=== PATIENT | female | born 1950 | race Caucasian/White ===

== ENCOUNTER 2024-12-23 17:25 | Inpatient (IN) ==
--- NOTE | 2024-12-23 17:33 | Emergency Department Note ---
Impression & Plan High degree atrioventricular block, Unwitnessed fall, Complicated laceration of lip, Acute alcohol intoxication delirium with moderate or severe use disorder, Acute hyponatremia, Anemia ED Provider Note NAME: FEDE MOREIRA AGE: 74 SEX: F : 1950 ARRIVES VIA: Ambulance INFORMANT: Patient, EMS ED PROVIDER(S): Cale Cerda DO CHIEF COMPLAINT: fall, found down HPI: This is a 74-year-old female with the PMHx of alcohol use disorder, tobacco use disorder, hypertension, dyslipidemia and osteoporosis presenting to [facility] for further evaluation of unwitnessed fall. Patient is accompanied by EMS who provide additional history. EMS reports that the patient was found outside her home. She lives by herself. They report positive ethanol. The patient was intoxicated and confused. Unknown amount of downtime. Noted to have lip laceration but otherwise no evidence of trauma. The patient was placed in a c- collar and transported. The patient currently has no complaints. She is delirious. She is unable to provide reliable history. She denies neck or back pain. No pain in her extremities. Patient does not know how she fell she reports to drinking 4 beverages this evening. They deny fever or chills. No cough or congestion. Denies chest pain or palpitations. No shortness of breath. They deny abdominal pain, nausea and vomiting. No urinary complaints. No recent changes in bowel movements. Patient denies recent changes in medications or OTC supplements. Patient offers no other complaints, today. ADDITIONAL HISTORY OBTAINED: Per HPI Chronic Medical/Social Conditions Affecting Care: Per HPI PAST MEDICAL HISTORY: See Below PAST SURGICAL HISTORY: See Below FAMILY HISTORY: See Below SOCIAL HISTORY: See Below HOME MEDICATIONS: See Below ALLERGIES: See Below VITALS: See Below Primary Survey Airway: Intact Breathing: Normal, breath sounds equal bilaterally Circulation: Skin warm, distal pulses 2+, capillary refill less than 2 seconds Disability Pupils: Equal and reactive to light, 4mm, brisk GCS: 15, E = 4, V=4, M= 6 Motor Function: Moves all extremities. Sensory: No deficits Secondary Survey GEN: Well developed and well-nourished HENT: L upper lip laceration 1.5 cm with extension across the vermilion border. There is complete laceration through the lip and into the submucosal tissue. No active bleeding. Head: no external signs of trauma. Mouth/Throat: Midface Normal. no malocclusion. Eyes: EOMI. Pupils are 4 mm, round and reactive bilaterally. Ears: TMs are intact bilaterally. no external hematomas. no hemotympanum. Nose: No nasal septal hematoma. no gross deformity. Neck: C-collar in place. no midline C-spine tenderness. No step-offs. Cardiovascular: Bradycardic Pulses present in all 4 extremities. Pulmonary/Chest: Normal BS equal bilaterally. no tenderness or ecchymosis. Abdomen: DO tenderness or ecchymosis. Musculoskeletal: Pelvis: no instability. Back: no midline tenderness. No step-offs or deformities. Extremities: no gross deformities. no TTP. Skin: lip laceration as above. There are scattered abrasions. Organic material scattered over the head, scalp and extremities. Neuro: No focal neurological deficits. GCS as above. She is mildly confused and inattentive Psych: Normal mood and affect. MEDICAL DECISION MAKING: Vitals: The patient is bradycardic and hypertensive. No fever. Otherwise HDS. EKG independently interpreted by me reveals concerns for high degree AV block with multiple P waves without QRS. Could be junctional rhythm. Rate is [address] segment changes suggest STEMI. Labs: Laboratory analysis as above Differential diagnoses include but not limited to multi-system trauma, ICH, skull fracture, spine / spinal cord injury, fracture, dislocation, traumatic abdominal injuries, solid / visceral organ injuries, MSK sprain / strain, contusion, whiplash, concussion In summary, this is a 74 who presented as a trauma alert. There was prehospital notification of trauma. They were brought to the emergency/resuscitation room by EMS. Patient was brought into the emergency/resuscitation room by EMS. Full ATLS protocol was initiated under direction of the ED team. The history was concerning for multi-system trauma. Airway intact and self maintained, breath sounds bilateral and equal along with normal effort, circulation intact with pp in 4 extremities, GCS 14 with normal speech and sensorium and THORNE. Patient was removed from the EMS stretcher with in-line stabilization technique and patient is back examined. Full physical examination as above. History and secondary survey as above. Labs drawn and significant for mild anemia and hyponatremia. Ethanol elevated and correlates to exam and presentation. CXR independently interpreted by me reveals no evidence of focal consolidation to suggest pna. No large pneumothorax or pleural effusion. eFAST deferred for WBCT as the patient does not demonstrate evidence of shock. Collar maintained. Pt was given tetanus. Initial/stabilizing treatments include close observation and TDAP. Imaging performed and reviewed as above. Patient was taken to the CT suite for WBCT. On reevaluation at 1820, patient is still confused and intoxicated. Unable to provide consent for lip laceration repair. She states she does not have family or friends for a ride. Will touch base with care management for assistance. SHe does appear to have second degree AVB on rhythm strips. Hypertensive. Intoxicated and difficult to obtain story. Some consistent P waves but felt third degree block is less likely. Will send rhythm strips to discuss with cardiology. The patient's cervical collar was not removed today. The patient's imaging was reviewed and the CT C-Spine was negative for acute injury. Unfortunately, the patient is still intoxicated and C collar unable to be removed. The patient's complex injuries include unwitnessed fall with subsequent lip laceration and high degree AV block. Patient also has metabolic derangements including hyponatremia. Patient found to have anemia. She is altered in the setting of acute alcohol intoxication. The patient's lip laceration was repaired as the benefits outweighed the risk. She was consented to the best of her ability given her acute intoxication. Laceration repair was needed immediately to ensure wound healing. Based on the patient's age, code existing illnesses, exam and lab findings, the decision to treat as an inpatient was made. Given the patient's bradycardia and concerns for high degree AV block, I consulted cardiology. Spoke with cardiology at 2004. They are concerned for high-grade AV block in the setting of sinus tachycardia. They suspect this is likely related to metabolic derangements. They recommend to have the pads on the patient and atropine at bedside. If she were to develop worsening symptoms, become symptomatic or have long prolonged pauses, they would consider cardiac catheterization activation. For now, they would like to continue symptomatic management and correcting her metabolic derangements including alcohol intoxication. Given the patient's high degree AV block and fall with significant alcohol intoxication, I did recommend to admit this patient the patient was discussed with the [facility] hospitalist group, Dr. Saldana, at 2030 and she accepted for admission to her services. The patient's lip laceration was repaired at the bedside by midlevel provider. I was available for the procedure. I was present for critical steps of the procedure including approximation of the vermilion border. Consults/Care Managements Discussions: Per MDM ER treatment provided: See above Procedures:none Critical Care: None The chart was completed utilizing [employer] Speech voice recognition software. Grammatical errors, random word insertions, pronoun errors, and incomplete sentences are an occasional consequence of this system due to software limitations, ambient noise, and hardware issues. Any formal questions or concerns about the content, text, or information contained within the body of this dictation should be directly addressed to the physician for clarification. Past Med/Surg History Problem List Anemia (Acute) Acute hyponatremia (Acute) Acute alcohol intoxication delirium with moderate or severe use disorder (Acute) Complicated laceration of lip (Acute) Unwitnessed fall (Acute) High degree atrioventricular block (Acute) Junctional bradycardia Tobacco abuse Lyme carditis Complete heart block Lyme disease Fall Bradycardia Osteoporosis Dyslipidemia B12 deficiency Cigarette smoker Hearing difficulty HTN (hypertension) Medical History Migraines Anxiety and depression Cyst of ovary, right Teeth missing due to periodontal disease HTN (hypertension) No pertinent family history Surgical History History of removal of ovarian cyst Hx of appendectomy No pertinent past surgical history Family History Mother Anxiety Depression Diabetes Hypertension Father Prostate cancer Social History Smoking Status: Current every day smoker Tobacco Type: Cigarettes Age Started Using Tobacco: 20; packs per day: 0.75; Cigarettes Per Day: 3/4 pack; Second Hand Exposure: No; Do You Dip or Chew Tobacco: No; Tobacco Cessation Education Requested by Patient: No Hx Alcohol Use: Yes Alcohol type: beer Hx Substance Use: No Preferred Language: Citizen Of [place] Communication Ability: Effective Director Traffic And Planning Required: No Beliefs That Will Affect Care: None marital status: Single Current Living Situation: Alone Current Living Situation Comment: apartment current occupational status: retired Other Information That Helps Us Care for You: No Feels Safe at Home: Yes Childhood Exposure to Second-Hand Smoke: Yes Diet: regular caffeine: Yes Dental Care, Regularly: No Physical Activity Frequency: Daily Seatbelt Use: always Sunscreen Use: No Assistive Devices: Cane and Glasses Allergies Allergies Allergy/AdvReac Type Severity Reaction Status Date / Time No Known Allergies Allergy Verified 12/23/24 18:34 Home Meds Home Medications Medication Instructions Recorded Confirmed acetaminophen 325 mg tablet 650 mg PO DIRECTED PRN Pain 06/13/21 12/23/24 (Tylenol) mecobalamin (vitamin B12) 1,000 1,000 mcg sublingual DAILY 12/29/23 12/23/24 mcg disintegrating tablet,sublingual multivitamin 1 tab PO DAILY 12/29/23 12/23/24 Previous Rx's Medication Instructions Recorded lisinopril 40 mg tablet 40 mg PO DAILY 90 days #90 tabs 12/29/23 rosuvastatin 40 mg tablet (Crestor) 40 mg PO DAILY #90 tabs 05/19/24 alendronate 70 mg tablet (Fosamax) 70 mg PO .q7days 3 months #12 tabs 08/05/24 Results & Data (ED) Vital Signs Vital Signs - 24 hr 12/23/24 17:11 12/23/24 17:11 12/23/24 17:11 Temperature 36.4 C L 36.4 C L 36.4 C L Temperature Source Oral Oral Pulse Rate 49 L 49 L Pulse Rate [Right Finger] 49 L Respiratory Rate 21 21 21 Respiratory Effort / Characteristics Non-Labored Spontaneous Non-Labored Spontaneous Respiratory Depth Normal Normal Respiratory Pattern Blood Pressure 177/83 H 177/83 H Blood Pressure [Right Arm] 177/83 H Blood Pressure Mean 114 Blood Pressure Mean [Right Arm] 114 Pulse Oximetry 99 99 99 Oxygen Delivery Method Room Air Room Air Room Air Oxygen Flow Rate 0 Sepsis Recent Fever Within 48 Hours No Sepsis New/Unexplained Change in Mental Status No Sepsis Action Taken by Nursing No Action Required 12/23/24 17:38 12/23/24 18:10 12/23/24 18:11 Temperature 36.4 C L Temperature Source Oral Pulse Rate 50 L Pulse Rate [Right Finger] 49 L 48 L Respiratory Rate 19 18 Respiratory Effort / Characteristics Non-Labored Spontaneous Non-Labored Spontaneous Respiratory Depth Normal Normal Respiratory Pattern Blood Pressure Blood Pressure [Right Arm] 174/72 H 174/72 H Blood Pressure Mean Blood Pressure Mean [Right Arm] 106 106 Pulse Oximetry 98 97 Oxygen Delivery Method Room Air Room Air Oxygen Flow Rate Sepsis Recent Fever Within 48 Hours Sepsis New/Unexplained Change in Mental Status Sepsis Action Taken by Nursing 12/23/24 19:00 12/23/24 20:00 Temperature 37.0 C 36.8 C Temperature Source Oral Oral Pulse Rate Pulse Rate [Right Finger] 48 L 47 L Respiratory Rate 20 18 Respiratory Effort / Characteristics Non-Labored Spontaneous Non-Labored Spontaneous Respiratory Depth Normal Normal Respiratory Pattern Regular Regular Blood Pressure Blood Pressure [Right Arm] 187/69 H 179/75 H Blood Pressure Mean Blood Pressure Mean [Right Arm] 108 109 Pulse Oximetry 95 94 Oxygen Delivery Method Room Air Room Air Oxygen Flow Rate Sepsis Recent Fever Within 48 Hours Sepsis New/Unexplained Change in Mental Status Sepsis Action Taken by Nursing Laboratory Data 12/24/24 06:59 12/24/24 06:59 Lab Results 12/23/24 12/23/24 Range/Units 17:43 19:58 POC Hgb 12.2 (12.0-16.0) g/dl POC Hct 36 L (37-47) % POC Sodium 131 L (135-144) mmol/L POC Potassium 3.9 (3.3-5.0) mmol/L POC Chloride 99 L (101-112) mmol/L POC Total CO2 22 L (24-31) mmol/L POC Anion Gap 15.0 L (16-25) mmol/L POC BUN 11 (7-18) mg/dl POC Creatinine 0.9 (0.6-1.3) mg/dl POC Glucose (other) 94 (70-99) mg/dl POC Ioniz Calcium Katie 1.11 L (1.12-1.32) mmol/l Urine Color Yellow Urine Appearance Clear (Clear) Urine pH 5.5 (4.5-7.5) Ur Specific Banks 1.015 (1.000-1.030) Urine Protein Negative (Negative) Urine Glucose (UA) Negative (Negative) Urine Ketones Negative (Negative) Urine Blood Negative (Negative) Urine Nitrite Negative (Negative) Urine Bilirubin Negative (Negative) Urine Urobilinogen Negative (Negative) Ur Leukocyte Esterase Negative (Negative) Urine Comment Administered Medications Acetaminophen (Acetaminophen 500 Mg Tab) 1,000 mg PO TID PRN PRN Reason: pain or fever Stop: 01/22/25 23:03 Last Admin: 12/24/24 20:27 Dose: 1,000 mg Documented By: Admin: 12/23/24 23:44 Dose: 1,000 mg Documented By: CR Thiamine HCl 100 mg/ Syringe 10 mls @ 2 mls/min IV QAM FANTASMA Stop: 01/23/25 08:59 Last Admin: 12/24/24 08:44 Dose: 2 mls/min Documented By: OS Folic Acid 1 mg/ Syringe 10 mls @ 5 mls/min IV QAM FANTASMA Stop: 01/23/25 08:59 Last Admin: 12/24/24 08:46 Dose: 5 mls/min Documented By: OS Ceftriaxone Sodium (Rocephin) 2,000 mg in 50 mls @ 100 mls/hr IV Q24H FANTASMA Stop: 01/03/25 10:59 Last Infusion: 12/24/24 11:25 Dose: Infused Documented By: Admin: 12/24/24 10:51 Dose: 100 mls/hr Documented By: FRIDA Lisinopril (Lisinopril 40 Mg Tab) 40 mg PO DAILY FANTASMA Stop: 01/23/25 08:59 Last Admin: 12/24/24 08:44 Dose: 40 mg Documented By: OS Rosuvastatin Calcium (Rosuvastatin Calcium 20 Mg Tab) 40 mg PO DAILY FANTASMA Stop: 01/23/25 08:59 Last Admin: 12/24/24 08:44 Dose: 40 mg Documented By: OS Discontinued Medications Atropine Sulfate (Atropine Sulfate 0.1 Mg/Ml 10ml Syr) 0.5 mg IV PRN STA Stop: 12/23/24 20:21 Last Admin: 12/23/24 23:00 Dose: Not Given Documented By: KMB Diphtheria/Pertussis/Tetanus Vacc (Diphther/Tetan/Pertus Vaccine (Tdap, Adol/Adult) 0.5ml) 0.5 ml IM .ONCE ONE Stop: 12/23/24 17:34 Last Admin: 12/23/24 17:40 Dose: 0.5 ml Documented By: CTK Lactated Ringer's (Lr) 1,000 mls @ 125 mls/hr IV .Q8H FANTASMA Stop: 12/24/24 07:03 Last Infusion: 12/24/24 08:49 Dose: Infused Documented By: Admin: 12/24/24 00:21 Dose: 125 mls/hr Documented By: CR Thiamine HCl 500 mg/ Sodium (Chloride) 55 mls @ 210 mls/hr IV NOW ONE Stop: 12/23/24 23:30 Last Infusion: 12/24/24 00:22 Dose: Infused Documented By: Admin: 12/24/24 00:06 Dose: 210 mls/hr Documented By: MARTHA Calcium Gluconate () 1,000 mg in 60 mls @ 240 mls/hr IV NOW STA Stop: 12/23/24 23:18 Last Infusion: 12/24/24 00:05 Dose: Infused Documented By: Admin: 12/23/24 23:50 Dose: 240 mls/hr Documented By: MARTHA Ioversol (Optiray 320 100ml) 90 ml IV ONCE ONE Stop: 12/23/24 17:56 Last Admin: 12/23/24 17:56 Dose: 90 ml Documented By: JANNETH Lidocaine HCl (Lidocaine 1% Local 20 Ml Vial) 10 ml INFIL NOW ONE Stop: 12/23/24 19:38 Last Admin: 12/23/24 19:43 Dose: 10 ml Documented By: BRIGITTE Imaging Data Radiologist's Impression: Abdomen/Pelvis CT 12/23/24 17:31 Clinical History: Trauma Technique: Axial computed tomography images were obtained of the abdomen and pelvis after the administration of intravenous contrast. No prior CT is available for comparison. Findings: The liver is overall of normal size, attenuation, and contour with no sign of cirrhosis or significant fatty infiltration. No liver mass lesion is seen. The portal vein is patent. The gallbladder appears unremarkable. No bile duct dilatation is noted. The spleen is of normal size. No focal splenic lesion is evident. The pancreas appears normal with no sign of acute or chronic pancreatitis and no mass lesion noted. The pancreatic duct is of normal caliber. The adrenal glands appear unremarkable. No definite renal or proximal ureteral calculi are seen on this contrast-enhanced study. There is no hydronephrosis or perinephric stranding. No renal mass lesion is identified. The abdominal aorta is of normal caliber. No abdominal adenopathy is seen. The stomach appears normal. There is no sign of small bowel obstruction. There is suspected mild wall thickening of the jejunum. There is also apparent long segment wall thickening of the mid and distal sigmoid colon. There is diverticulosis without definite acute diverticulitis. No free intraperitoneal fluid or air is identified. No distal ureteral or bladder calculi are seen. No bladder mass lesion is evident. The iliac arteries are of normal caliber. No pelvic adenopathy is noted. No fracture is identified. No focal osseous lesion is seen Impression: 1. No definite sign of abdominal organ injury after trauma 2. Apparent wall thickening of the jejunum and sigmoid colon that could be due to infection or inflammatory bowel disease 3. Diverticulosis without definite diverticulitis ACT 112: Positive. There are findings on this exam that require communication between the performing entity and the patient following Patient Test Result Information Act ([place] ACT 112) guidelines. Electronically signed by All Herr 12-23-2024 6:[address] 12/23/24 17:31 Clinical history: Fall Technique: Axial computed tomography images were obtained of the cervical spine without intravenous contrast. Sagittal and coronal reconstructions were obtained Comparison is made to the prior CT dated 06/13/2021 Findings: No fracture is identified. No listhesis is seen. No focal osseous lesion is evident. The atlantoaxial articulation appears unremarkable. At C2-3, no disc herniation is identified. There is no spinal stenosis. The neural foramen are patent At C3-4, there is a disc bulge without clear spinal cord deformity. There is right neural foramen narrowing that may affect the right C4 nerve root At C4-5, there is a disc bulge without spinal stenosis. There is mild right neural foramen narrowing At C5-6, there is a disc bulge without spinal stenosis. There is right neural foramen narrowing that may affect the right C6 nerve root At C6-7, there is a disc bulge without spinal stenosis. There is mild right neural foramen narrowing At C7-T1, there is a disc bulge without spinal stenosis. The neural foramen are patent The lung apices appear clear. The visualized soft tissues of the neck appear unremarkable. No foreign body is seen Impression: 1. No definite cervical spine fracture 2. Right C3-4 and C5-6 neural foramen narrowing, which may affect the exiting nerve roots. Less severe neural foramen narrowing is seen at other levels Electronically signed by All Herr 12-23-2024 6:[address] 12/23/24 17:31 Clinical history: Trauma Technique: Axial computed tomography images were obtained of the chest after the administration of intravenous contrast Comparison is made to the prior CT dated 02/08/2024 Findings: There is suspected mild pulmonary edema. The lungs otherwise appear clear without infiltrate or mass. There is no pleural effusion or pneumothorax. There is no sign of pulmonary fibrosis or other diffuse interstitial process. No endobronchial lesion is seen There is no mediastinal, hilar, or axillary adenopathy. The descending thoracic aorta is mildly aneurysmal, measuring 3.3 cm in diameter. No aortic dissection is seen There is no pericardial effusion. There is a severe stenosis of the proximal left subclavian artery. There is coronary atherosclerosis. There is mild dilatation of the esophagus. No definite rib fracture is seen. No focal osseous lesion is evident Impression: 1. Mild pulmonary edema 2. Mild thoracic aortic aneurysm 3. Severe stenosis of the proximal left subclavian artery 4. Mild esophageal dilatation that could be due to dysmotility or reflux Electronically signed by All Herr 12-23-2024 6:32 PM Chest X-Ray 12/23/24 17:31 Clinical History: Trauma Technique: 2 frontal views of the chest were obtained Findings: There are no confluent pulmonary infiltrates. The heart is mildly enlarged. No pleural effusion or pneumothorax is seen. There is no definite pulmonary nodule. No fracture is noted. No foreign body is seen Impression: Mild cardiomegaly Electronically signed by All Herr 12-23-2024 6:[address] 12/23/24 17:31 Clinical History: Trauma Technique: Axial computed tomography images were obtained of the brain without intravenous contrast. Findings: There is diffuse cerebral atrophy, within expected limits for the patient's age. Areas of decreased attenuation are seen within the periventricular white matter, likely representing chronic small vessel ischemic disease. There is no definite sign of acute or old infarction. No intracranial hemorrhage is evident. No definite mass lesion is seen on this noncontrast examination. There is no midline shift or other form of herniation. No hydrocephalus is seen. No fracture is identified. The orbits and the visualized paranasal sinuses appear unremarkable. There is opacification of the mastoid air cells bilaterally Impression: 1. No sign of intracranial hemorrhage 2. Cerebral atrophy and chronic small vessel ischemic disease 3. Bilateral mastoid air cell opacification, concerning for inflammatory mastoiditis Electronically signed by All Herr 12-23-2024 6:17 PM Pelvis X-Ray 12/23/24 17:31 Clinical History: Trauma One view of the pelvis is submitted for review. Findings: No fracture or dislocation is seen. No significant arthritic changes are noted. No other osseous abnormality is identified. There are no radiopaque foreign bodies. Impression: Unremarkable pelvic radiograph Electronically signed by All Herr 12-23-2024 6:[address] 12/23/24 17:33 Clinical history: Trauma Technique: Axial computed tomography images were obtained of the facial bones without intravenous contrast. Sagittal and coronal reconstructions were obtained Findings: No fracture is identified. No focal osseous lesion is noted. 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 The ostiomeatal units appear patent bilaterally. The orbits appear unremarkable. No foreign body is seen. The nasal septum is deviated. No definite nasal polyp is noted Impression: No definite facial bone fracture Electronically signed by All Herr 12-23-2024 6:29 PM Discharge Plan Visit Data Chief Complaint: Trauma ED Provider: Cale Cerda Discharge Problem: High degree atrioventricular block, Unwitnessed fall, Complicated laceration of lip, Acute alcohol intoxication delirium with moderate or severe use disorder, Acute hyponatremia, Anemia Patient Disposition: Admitted As Inpatient Condition: Serious Discharge Instructions Interventions: ED Discharge Assessment Last Done: 12/23/24 22:39
[2024-12-23] MEDS: DIPHTHER/TETAN/PERTUS Vaccine (Tdap, Adol/Adult) 0.5mL IM ONE (17:40)
[2024-12-23 17:54] LABS: Hematocrit (blood only) 35.3 % (37.0-47.0); Hemoglobin 11.9 g/dl (12.0-16.0); Immature Granulocytes # (auto) 0.03 K/uL (0.01-0.20); Immature Granulocytes % (auto) 0.4 %; Mean Corpuscular Hemoglobin 30.1 pg (25.0-34.0); Mean Corpuscular Volume 89.4 fL (80.0-100.0); Platelet Count 282 K/uL (130-400); RDW Standard Deviation 44.1 fL (36.4-46.3); Red Blood Count 3.95 M/uL (4.20-5.40); White Blood Count 8.27 K/ul (4.8-10.8)
[2024-12-23] MEDS: OPTIRAY 320 100ml IV ONE (17:56)
[2024-12-23 18:11] LABS: Alanine Aminotransferase 12.0 U/L (7-52); Albumin Globulin Ratio 1.5 (0.9-2); Alkaline Phosphatase 86.0 U/L (34-104); Anion Gap 11.0 (3-11); Bilirubin,Total 0.3 mg/dl (0.2-1.0); Blood Urea Nitrogen 12.0 mg/dl (6-23); Calcium 8.9 mg/dl (8.6-10.3); Carbon Dioxide 24.0 mmol/L (21-32); Chloride 97.0 mmol/L (98-107); Creatine Kinase 61.0 U/L (26-192); Creatinine Clr Calc Pharmacy 89.2 ml/min; Globulin 2.8 gm/dl (2.5-4.0); Glucose 95.0 mg/dl (70-99(Fasting)); Lipase 52.0 U/L (11-82); Potassium 3.9 mmol/L (3.5-5.1); Sodium 132.0 mmol/L (136-145); Total Protein 6.9 gm/dl (6.0-8.3)
--- NOTE | 2024-12-23 18:18 | CT Scan Report ---
Clinical History: Trauma Technique: Axial computed tomography images were obtained of the brain without intravenous contrast. Findings: There is diffuse cerebral atrophy, within expected limits for the patient's age. Areas of decreased attenuation are seen within the periventricular white matter, likely representing chronic small vessel ischemic disease. There is no definite sign of acute or old infarction. No intracranial hemorrhage is evident. No definite mass lesion is seen on this noncontrast examination. There is no midline shift or other form of herniation. No hydrocephalus is seen. No fracture is identified. The orbits and the visualized paranasal sinuses appear unremarkable. There is opacification of the mastoid air cells bilaterally Impression: 1. No sign of intracranial hemorrhage 2. Cerebral atrophy and chronic small vessel ischemic disease 3. Bilateral mastoid air cell opacification, concerning for inflammatory mastoiditis Electronically signed by All Herr 12-23-2024 6:17 PM
--- NOTE | 2024-12-23 18:30 | CT Scan Report ---
Clinical history: Trauma Technique: Axial computed tomography images were obtained of the facial bones without intravenous contrast. Sagittal and coronal reconstructions were obtained Findings: No fracture is identified. No focal osseous lesion is noted. 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 The ostiomeatal units appear patent bilaterally. The orbits appear unremarkable. No foreign body is seen. The nasal septum is deviated. No definite nasal polyp is noted Impression: No definite facial bone fracture Electronically signed by All Herr 12-23-2024 6:29 PM
[2024-12-23 18:32] LABS: INR 0.9 (0.9-1.1); Partial Thromboplastin Time 28 Seconds (21-31); Prothrombin Time 9.9 Seconds (9.0-12.0)
--- NOTE | 2024-12-23 18:32 | CT Scan Report ---
Clinical history: Trauma Technique: Axial computed tomography images were obtained of the chest after the administration of intravenous contrast Comparison is made to the prior CT dated 02/08/2024 Findings: There is suspected mild pulmonary edema. The lungs otherwise appear clear without infiltrate or mass. There is no pleural effusion or pneumothorax. There is no sign of pulmonary fibrosis or other diffuse interstitial process. No endobronchial lesion is seen There is no mediastinal, hilar, or axillary adenopathy. The descending thoracic aorta is mildly aneurysmal, measuring 3.3 cm in diameter. No aortic dissection is seen There is no pericardial effusion. There is a severe stenosis of the proximal left subclavian artery. There is coronary atherosclerosis. There is mild dilatation of the esophagus. No definite rib fracture is seen. No focal osseous lesion is evident Impression: 1. Mild pulmonary edema 2. Mild thoracic aortic aneurysm 3. Severe stenosis of the proximal left subclavian artery 4. Mild esophageal dilatation that could be due to dysmotility or reflux Electronically signed by All Herr 12-23-2024 6:32 PM
--- NOTE | 2024-12-23 18:36 | CT Scan Report ---
Clinical History: Trauma Technique: Axial computed tomography images were obtained of the abdomen and pelvis after the administration of intravenous contrast. No prior CT is available for comparison. Findings: The liver is overall of normal size, attenuation, and contour with no sign of cirrhosis or significant fatty infiltration. No liver mass lesion is seen. The portal vein is patent. The gallbladder appears unremarkable. No bile duct dilatation is noted. The spleen is of normal size. No focal splenic lesion is evident. The pancreas appears normal with no sign of acute or chronic pancreatitis and no mass lesion noted. The pancreatic duct is of normal caliber. The adrenal glands appear unremarkable. No definite renal or proximal ureteral calculi are seen on this contrast-enhanced study. There is no hydronephrosis or perinephric stranding. No renal mass lesion is identified. The abdominal aorta is of normal caliber. No abdominal adenopathy is seen. The stomach appears normal. There is no sign of small bowel obstruction. There is suspected mild wall thickening of the jejunum. There is also apparent long segment wall thickening of the mid and distal sigmoid colon. There is diverticulosis without definite acute diverticulitis. No free intraperitoneal fluid or air is identified. No distal ureteral or bladder calculi are seen. No bladder mass lesion is evident. The iliac arteries are of normal caliber. No pelvic adenopathy is noted. No fracture is identified. No focal osseous lesion is seen Impression: 1. No definite sign of abdominal organ injury after trauma 2. Apparent wall thickening of the jejunum and sigmoid colon that could be due to infection or inflammatory bowel disease 3. Diverticulosis without definite diverticulitis ACT 112: Positive. There are findings on this exam that require communication between the performing entity and the patient following Patient Test Result Information Act ([place] ACT 112) guidelines. Electronically signed by All Herr 12-23-2024 6:36 PM
--- NOTE | 2024-12-23 18:39 | CT Scan Report ---
Clinical history: Fall Technique: Axial computed tomography images were obtained of the cervical spine without intravenous contrast. Sagittal and coronal reconstructions were obtained Comparison is made to the prior CT dated 06/13/2021 Findings: No fracture is identified. No listhesis is seen. No focal osseous lesion is evident. The atlantoaxial articulation appears unremarkable. At C2-3, no disc herniation is identified. There is no spinal stenosis. The neural foramen are patent At C3-4, there is a disc bulge without clear spinal cord deformity. There is right neural foramen narrowing that may affect the right C4 nerve root At C4-5, there is a disc bulge without spinal stenosis. There is mild right neural foramen narrowing At C5-6, there is a disc bulge without spinal stenosis. There is right neural foramen narrowing that may affect the right C6 nerve root At C6-7, there is a disc bulge without spinal stenosis. There is mild right neural foramen narrowing At C7-T1, there is a disc bulge without spinal stenosis. The neural foramen are patent The lung apices appear clear. The visualized soft tissues of the neck appear unremarkable. No foreign body is seen Impression: 1. No definite cervical spine fracture 2. Right C3-4 and C5-6 neural foramen narrowing, which may affect the exiting nerve roots. Less severe neural foramen narrowing is seen at other levels Electronically signed by All Herr 12-23-2024 6:39 PM
--- NOTE | 2024-12-23 18:40 | XRay Report ---
Clinical History: Trauma Technique: 2 frontal views of the chest were obtained Findings: There are no confluent pulmonary infiltrates. The heart is mildly enlarged. No pleural effusion or pneumothorax is seen. There is no definite pulmonary nodule. No fracture is noted. No foreign body is seen Impression: Mild cardiomegaly Electronically signed by All Herr 12-23-2024 6:40 PM
--- NOTE | 2024-12-23 18:41 | XRay Report ---
Clinical History: Trauma One view of the pelvis is submitted for review. Findings: No fracture or dislocation is seen. No significant arthritic changes are noted. No other osseous abnormality is identified. There are no radiopaque foreign bodies. Impression: Unremarkable pelvic radiograph Electronically signed by All Herr 12-23-2024 6:40 PM
[2024-12-23] MEDS: LIDOCAINE 1% LOCAL 20 ML VIAL INFIL ONE (19:43)
[2024-12-23 20:10] LABS: Appearance Urine Clear (Clear); Glucose Urine UA Negative (Negative)
--- NOTE | 2024-12-23 20:23 | Emergency Department Note ---
ED Visit Note I was asked to repair this patient's lip laceration by Dr. Cerda. Please refer to his dictation for further details. In short, the patient had an unwitnessed fall when she tripped and fell while walking into her apartment striking her face on the concrete. The patient sustained a laceration to the left side of her upper lip. The patient has a 4 cm long laceration to the left side of the upper lip. The laceration crosses the vermilion border. The edges gape widely apart with and without traction, but it is not a through and through laceration. There is no active bleeding and no foreign bodies present. No other lacerations to the inside of the mouth or the remainder of the lips. There was concern about the patient's compliance with follow-up, therefore, dissolvable sutures were used to repair the lip laceration. Risks and benefits of the procedure were discussed. Verbal consent was obtained to perform the procedure and the procedure was performed by myself. Using sterile technique the wound was cleaned with Betadine. The area was sterilely draped. 2 ml of 1% lidocaine was used to anesthetize the wound. Once the patient was anesthetized, the wound was copiously irrigated under pressure with sterile saline. The wound was explored and was as described above. The more external portion of the laceration was repaired using 5 simple interrupted 6-0 Vicryl sutures with the wound edges being well approximated and careful attention to reapproximate the vermilion border. The internal portion of the laceration that was more internal and over the mucous membrane was repaired using 4 simple interrupted 5-0 plain gut sutures with the wound edges being well-approximated. The patient tolerated the procedure well. Hemostasis was achieved. The area was cleaned with sterile saline. .
--- NOTE | 2024-12-23 20:59 | History & Physical Report ---
Date of Service December 23, 2024 Assessment & Plan (1) Fall: (2) Bradycardia: (3) HTN (hypertension): (4) Dyslipidemia: Plan 74yo female with HTN, HLP presenting with unwitnessed fall, unknown down time. Patient with bradycardia noted on monitor, possible high degree block? Imaging as above with no fractures or trauma. Cervical spine with no fracture. Patient denies neck pain or tenderness. #Fall - unwitnessed fall. Patient has had gait instability in the past and has completed several sessions of PT/OT. She denies falling frequently of late -Admit to PCU -Can liberate cervical collar as imaging is negative. Patient denies neck pain -PT/OT evaluation -Maintain fall precautions -Tylenol PRN pain #Bradycardia - possible high degree block -Check Mg and PO4 and replete as needed -Calcium gluconate x 1 amp -Telemetry monitoring -Atropine as needed for sustained or symptomatic bradycardia -Check 2D echo -Cardiology consultation appreciated #Hypertension -Continue Lisinopril 40mg po daily -MOnitor #Hyperlipidemia -Continue Crestor 40mg po daily History of Present Illness Chief Complaint: fall, bradycardia Primary Care Provider: Lakia Pace MD Karon Rader is a 74yo female with history of HTN, HLP and Anxiety presenting after being found down outside. Patient reports this afternoon around 16:00 she was walking into her apartment when she tripped and fell. She struck her face on the concrete and sustained a lip laceration. She was unable to get up and does not relay the events from then that got her to the ER. She denies losing consciousness. No report of chest pain, palpitations, dizziness or syncope. Patient reports that she eats and drinks well. Normal BM and UOP. She does drink EtOH daily - reports 3-4 beers daily. No additional complaints at this time. In the ER patient noted to be bradycardic - possibly junctional rhythm vs sinus tachycardia with underlying block. Rates in the 30-40's. No pauses. ER Course: TDap vaccine Lidocaine Allergies Allergy/AdvReac Type Severity Reaction Status Date / Time No Known Allergies Allergy Verified 12/23/24 18:34 Home Medications Medication Instructions Recorded Confirmed Type acetaminophen 325 mg tablet 650 mg PO DIRECTED PRN Pain 06/13/21 12/23/24 History (Tylenol) lisinopril 40 mg tablet 40 mg PO DAILY 90 days #90 tabs 07/30/24 07/25/25 Rx mecobalamin (vitamin B12) 1,000 1,000 mcg sublingual DAILY 12/29/23 12/23/24 History mcg disintegrating tablet,sublingual multivitamin 1 tab PO DAILY 12/29/23 12/23/24 History rosuvastatin 40 mg tablet (Crestor) 40 mg PO DAILY #90 tabs 05/19/24 12/23/24 Rx alendronate 70 mg tablet (Fosamax) 70 mg PO .q7days 3 months #12 tabs 08/05/24 12/23/24 Rx Past Med/Surg History Problem List (Updated 12/23/24 @ 23:30 by Anusha Saldana DO) Fall Bradycardia Osteoporosis Dyslipidemia B12 deficiency Cigarette smoker Hearing difficulty HTN (hypertension) Medical History Migraines Anxiety and depression Cyst of ovary, right Teeth missing due to periodontal disease HTN (hypertension) No pertinent family history Surgical History History of removal of ovarian cyst Hx of appendectomy No pertinent past surgical history Family History Mother Anxiety Depression Diabetes Hypertension Father Prostate cancer Social History Smoking Status: Current every day smoker Tobacco Type: Cigarettes Age Started Using Tobacco: 20; packs per day: 0.75; Second Hand Exposure: Yes; Hx Alcohol Use: Yes Hx Substance Use: No Preferred Language: Malay marital status: Single Current Living Situation: Alone current occupational status: retired Feels Safe at Home: Yes Childhood Exposure to Second-Hand Smoke: Yes Diet: regular caffeine: Yes Dental Care, Regularly: No Physical Activity Frequency: Daily Seatbelt Use: always Sunscreen Use: No Assistive Devices: Glasses Review of Systems Review of Systems: All systems reviewed & are unremarkable except as noted in HPI & below Physical Exam Physical Exam: General: pt AA&O, intoxicated, cervical collar in place Skin: laceration of lip s/p repair, no active bleeding HEENT: PERRL, EOMI, anicteric sclera, conjunctiva without injection, external ear normal to inspection and nontender, nares patent, dry mucus membranes, poor dentition, no oropharyngeal lesions, cervical collar in place, no LAD, no th yromegaly, no JVD Heart: +S1/S2, irregular, bradycardic, 3/6 BUSHRA Lungs: equal air entry bilaterally, no rales/rhonchi/wheezes Abd: +BS, soft, NT/ND, no masses/organomegaly/ascites Ext: warm, 2+ pulses in UE/LE bilaterally, no clubbing/cyanosis or edema Neuro: nonfocal, patient AA&O x 4, speech intact, no facial droop, moving all extremities on command with equal strength 5/5 Results & Data Results & Data Vital Signs (Past 12 Hours) Vital Signs Temp Pulse Pulse Resp BP BP Pulse Ox 12/23/24 20:00 36.8 C 47 L 18 179/75 H 94 12/23/24 19:00 37.0 C 48 L 20 187/69 H 95 12/23/24 18:11 36.4 C L 48 L 18 174/72 H 97 12/23/24 18:10 49 L 19 174/72 H 98 12/23/24 17:38 50 L 12/23/24 17:11 36.4 C L 49 L 21 177/83 H 99 12/23/24 17:11 36.4 C L 49 L 21 177/83 H 99 12/23/24 17:11 36.4 C L 49 L 21 177/83 H 99 O2 Del Method O2 Flow Rate 12/23/24 20:00 Room Air 12/23/24 19:00 Room Air 12/23/24 18:11 Room Air 12/23/24 18:10 Room Air 12/23/24 17:38 12/23/24 17:11 Room Air 12/23/24 17:11 Room Air 0 12/23/24 17:11 Room Air Laboratory Results Laboratory Results WBC 8.27 K/ul (4.8-10.8) 12/23/24 Unknown RBC 3.95 M/uL (4.20-5.40) L 12/23/24 Unknown Hgb 11.9 g/dl (12.0-16.0) L 12/23/24 Unknown POC Hgb 12.2 g/dl (12.0-16.0) 12/23/24 17:43 Hct 35.3 % (37.0-47.0) L 12/23/24 Unknown POC Hct 36 % (37-47) L 12/23/24 17:43 MCV 89.4 fL (80.0-100.0) 12/23/24 Unknown MCH 30.1 pg (25.0-34.0) 12/23/24 Unknown MCHC 33.7 g/dL (32.0-36.0) 12/23/24 Unknown RDW Std Deviation 44.1 fL (36.4-46.3) 12/23/24 Unknown RDW Coeff of Kurt 13.4 % (11.5-14.5) 12/23/24 Unknown Plt Count 282 K/uL (130-400) 12/23/24 Unknown MPV 9.0 fL (9.4-12.4) L 12/23/24 Unknown Immature Gran % (Auto) 0.4 % 12/23/24 Unknown Neut % (Auto) 55.4 % 12/23/24 Unknown Lymph % (Auto) 36.4 % 12/23/24 Unknown Blount % (Auto) 6.4 % 12/23/24 Unknown Eos % (Auto) 0.7 % 12/23/24 Unknown Baso % (Auto) 0.7 % 12/23/24 Unknown Neut # (Auto) 4.58 K/uL (1.40-6.50) 12/23/24 Unknown Lymph # (Auto) 3.01 K/uL (1.20-3.40) 12/23/24 Unknown Blount # (Auto) 0.53 K/uL (0.11-0.59) 12/23/24 Unknown Eos # (Auto) 0.06 K/uL (0.00-0.50) 12/23/24 Unknown Baso # (Auto) 0.06 K/uL (0.00-0.20) 12/23/24 Unknown Immature Gran # (Auto) 0.03 K/uL (0.01-0.20) 12/23/24 Unknown PT 9.9 Seconds (9.0-12.0) 12/23/24 Unknown INR 0.9 (0.9-1.1) 12/23/24 Unknown APTT 28 Seconds (21-31) 12/23/24 Unknown PTT Ratio 1.0 12/23/24 Unknown POC Sodium 131 mmol/L (135-144) L 12/23/24 17:43 Sodium 132 mmol/L (136-145) L 12/23/24 Unknown POC Potassium 3.9 mmol/L (3.3-5.0) 12/23/24 17:43 Potassium 3.9 mmol/L (3.5-5.1) 12/23/24 Unknown POC Chloride 99 mmol/L (101-112) L 12/23/24 17:43 Chloride 97 mmol/L (98-107) L 12/23/24 Unknown Carbon Dioxide 24 mmol/L (21-32) 12/23/24 Unknown POC Total CO2 22 mmol/L (24-31) L 12/23/24 17:43 Anion Gap 11 (3-11) 12/23/24 Unknown POC Anion Gap 15.0 mmol/L (16-25) L 12/23/24 17:43 POC BUN 11 mg/dl (7-18) 12/23/24 17:43 BUN 12 mg/dl (6-23) 12/23/24 Unknown Creatinine 0.57 mg/dl (0.6-1.2) L 12/23/24 Unknown POC Creatinine 0.9 mg/dl (0.6-1.3) 12/23/24 17:43 Est Cr Clr Drug Dosing 89.2 ml/min 12/23/24 Unknown eGFR 96.49 12/23/24 Unknown BUN/Creatinine Ratio 21.1 (10-20) H 12/23/24 Unknown Glucose 95 mg/dl (70-99(Fasting)) 12/23/24 Unknown POC Glucose (other) 94 mg/dl (70-99) 12/23/24 17:43 Calcium 8.9 mg/dl (8.6-10.3) 12/23/24 Unknown POC Ioniz Calcium Katie 1.11 mmol/l (1.12-1.32) L 12/23/24 17:43 Total Bilirubin 0.3 mg/dl (0.2-1.0) 12/23/24 Unknown AST 18 U/L (13-39) 12/23/24 Unknown ALT 12 U/L (7-52) 12/23/24 Unknown Alkaline Phosphatase 86 U/L (34-104) 12/23/24 Unknown Total Creatine Kinase 61 U/L (26-192) 12/23/24 Unknown Total Protein 6.9 gm/dl (6.0-8.3) 12/23/24 Unknown Albumin 4.1 gm/dl (3.4-5.0) 12/23/24 Unknown Globulin 2.8 gm/dl (2.5-4.0) 12/23/24 Unknown Albumin/Globulin Ratio 1.5 (0.9-2) 12/23/24 Unknown Lipase 52 U/L (11-82) 12/23/24 Unknown Urine Color Yellow 12/23/24 19:58 Urine Appearance Clear (Clear) 12/23/24 19:58 Urine pH 5.5 (4.5-7.5) 12/23/24 19:58 Ur Specific [place] 1.015 (1.000-1.030) 12/23/24 19:58 Urine Protein Negative (Negative) 12/23/24 19:58 Urine Glucose (UA) Negative (Negative) 12/23/24 19:58 Urine Ketones Negative (Negative) 12/23/24 19:58 Urine Blood Negative (Negative) 12/23/24 19:58 Urine Nitrite Negative (Negative) 12/23/24 19:58 Urine Bilirubin Negative (Negative) 12/23/24 19:58 Urine Urobilinogen Negative (Negative) 12/23/24 19:58 Ur Leukocyte Esterase Negative (Negative) 12/23/24 19:58 Urine Comment 12/23/24 19:58 Ethyl Alcohol mg/dL 219.2 mg/dl (<10.0) H 12/23/24 Unknown Impressions Abdomen/Pelvis CT 12/23/24 17:31 Clinical History: Trauma Technique: Axial computed tomography images were obtained of the abdomen and pelvis after the administration of intravenous contrast. No prior CT is available for comparison. Findings: The liver is overall of normal size, attenuation, and contour with no sign of cirrhosis or significant fatty infiltration. No liver mass lesion is seen. The portal vein is patent. The gallbladder appears unremarkable. No bile duct dilatation is noted. The spleen is of normal size. No focal splenic lesion is evident. The pancreas appears normal with no sign of acute or chronic pancreatitis and no mass lesion noted. The pancreatic duct is of normal caliber. The adrenal glands appear unremarkable. No definite renal or proximal ureteral calculi are seen on this contrast-enhanced study. There is no hydronephrosis or perinephric stranding. No renal mass lesion is identified. The abdominal aorta is of normal caliber. No abdominal adenopathy is seen. The stomach appears normal. There is no sign of small bowel obstruction. There is suspected mild wall thickening of the jejunum. There is also apparent long segment wall thickening of the mid and distal sigmoid colon. There is diverticulosis without definite acute diverticulitis. No free intraperitoneal fluid or air is identified. No distal ureteral or bladder calculi are seen. No bladder mass lesion is evident. The iliac arteries are of normal caliber. No pelvic adenopathy is noted. No fracture is identified. No focal osseous lesion is seen Impression: 1. No definite sign of abdominal organ injury after trauma 2. Apparent wall thickening of the jejunum and sigmoid colon that could be due to infection or inflammatory bowel disease 3. Diverticulosis without definite diverticulitis ACT 112: Positive. There are findings on this exam that require communication between the performing entity and the patient following Patient Test Result Information Act ([place] ACT 112) guidelines. Electronically signed by All Herr 12-23-2024 6:[address] 12/23/24 17:31 Clinical history: Fall Technique: Axial computed tomography images were obtained of the cervical spine without intravenous contrast. Sagittal and coronal reconstructions were obtained Comparison is made to the prior CT dated 06/13/2021 Findings: No fracture is identified. No listhesis is seen. No focal osseous lesion is evident. The atlantoaxial articulation appears unremarkable. At C2-3, no disc herniation is identified. There is no spinal stenosis. The neural foramen are patent At C3-4, there is a disc bulge without clear spinal cord deformity. There is right neural foramen narrowing that may affect the right C4 nerve root At C4-5, there is a disc bulge without spinal stenosis. There is mild right neural foramen narrowing At C5-6, there is a disc bulge without spinal stenosis. There is right neural foramen narrowing that may affect the right C6 nerve root At C6-7, there is a disc bulge without spinal stenosis. There is mild right neural foramen narrowing At C7-T1, there is a disc bulge without spinal stenosis. The neural foramen are patent The lung apices appear clear. The visualized soft tissues of the neck appear unremarkable. No foreign body is seen Impression: 1. No definite cervical spine fracture 2. Right C3-4 and C5-6 neural foramen narrowing, which may affect the exiting nerve roots. Less severe neural foramen narrowing is seen at other levels Electronically signed by All Herr 12-23-2024 6:[address] 12/23/24 17:31 Clinical history: Trauma Technique: Axial computed tomography images were obtained of the chest after the administration of intravenous contrast Comparison is made to the prior CT dated 02/08/2024 Findings: There is suspected mild pulmonary edema. The lungs otherwise appear clear without infiltrate or mass. There is no pleural effusion or pneumothorax. There is no sign of pulmonary fibrosis or other diffuse interstitial process. No endobronchial lesion is seen There is no mediastinal, hilar, or axillary adenopathy. The descending thoracic aorta is mildly aneurysmal, measuring 3.3 cm in diameter. No aortic dissection is seen There is no pericardial effusion. There is a severe stenosis of the proximal left subclavian artery. There is coronary atherosclerosis. There is mild dilatation of the esophagus. No definite rib fracture is seen. No focal osseous lesion is evident Impression: 1. Mild pulmonary edema 2. Mild thoracic aortic aneurysm 3. Severe stenosis of the proximal left subclavian artery 4. Mild esophageal dilatation that could be due to dysmotility or reflux Electronically signed by All Herr 12-23-2024 6:32 PM Chest X-Ray 12/23/24 17:31 Clinical History: Trauma Technique: 2 frontal views of the chest were obtained Findings: There are no confluent pulmonary infiltrates. The heart is mildly enlarged. No pleural effusion or pneumothorax is seen. There is no definite pulmonary nodule. No fracture is noted. No foreign body is seen Impression: Mild cardiomegaly Electronically signed by All Herr 12-23-2024 6:[address] 12/23/24 17:31 Clinical History: Trauma Technique: Axial computed tomography images were obtained of the brain without intravenous contrast. Findings: There is diffuse cerebral atrophy, within expected limits for the patient's age. Areas of decreased attenuation are seen within the periventricular white matter, likely representing chronic small vessel ischemic disease. There is no definite sign of acute or old infarction. No intracranial hemorrhage is evident. No definite mass lesion is seen on this noncontrast examination. There is no midline shift or other form of herniation. No hydrocephalus is seen. No fracture is identified. The orbits and the visualized paranasal sinuses appear unremarkable. There is opacification of the mastoid air cells bilaterally Impression: 1. No sign of intracranial hemorrhage 2. Cerebral atrophy and chronic small vessel ischemic disease 3. Bilateral mastoid air cell opacification, concerning for inflammatory mastoiditis Electronically signed by All Herr 12-23-2024 6:17 PM Pelvis X-Ray 12/23/24 17:31 Clinical History: Trauma One view of the pelvis is submitted for review. Findings: No fracture or dislocation is seen. No significant arthritic changes are noted. No other osseous abnormality is identified. There are no radiopaque foreign bodies. Impression: Unremarkable pelvic radiograph Electronically signed by All Herr 12-23-2024 6:[address] 12/23/24 17:33 Clinical history: Trauma Technique: Axial computed tomography images were obtained of the facial bones without intravenous contrast. Sagittal and coronal reconstructions were obtained Findings: No fracture is identified. No focal osseous lesion is noted. 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 The ostiomeatal units appear patent bilaterally. The orbits appear unremarkable. No foreign body is seen. The nasal septum is deviated. No definite nasal polyp is noted Impression: No definite facial bone fracture Electronically signed by All Herr 12-23-2024 6:29 PM PG Care Time/CCT Total # of Minutes Spent Total Time Spent with Patient: Total time spent is greater than 50% in coordination of care (as documented) at patient's floor/unit and/or counseling patient: Coding Level of Care Code 35627 INT INP/OBS CARE 3/75MIN Diagnoses Fall W19.XXXA Bradycardia R00.1 HTN (hypertension) I10 Dyslipidemia E78.5
[2024-12-23] MEDS: ATROPINE SULFATE 0.1 MG/ML 10ML SYR IV STA (23:00)
[2024-12-23] MEDS ORDERED: ATROPINE SULFATE 0.1 MG/ML 10ML SYR IV PRN (23:04)
[2024-12-23] MEDS ORDERED: ONDANSETRON INJ 2 MG/ML 2 ML VIAL IV PRN (23:04)
[2024-12-23 23:35] LABS: Magnesium 2.0 mg/dl (1.7-2.4)
[2024-12-23] MEDS: ACETAMINOPHEN 500 MG TAB PO PRN (23:44)
[2024-12-23] MEDS: CALCIUM GLUCONATE 1,000 MG/60 ML BAG IV STA (23:50)
[2024-12-24] MEDS: THIAMINE HCL 500 MG in SODIUM CHLORIDE 0.9% 50 ML IV ONE (00:06)
[2024-12-24] MEDS: LACTATED RINGER'S 1,000 ML IV SCH (00:21)
[2024-12-24 07:39] LABS: Hematocrit (blood only) 34.6 % (37.0-47.0); Hemoglobin 11.8 g/dl (12.0-16.0); Mean Corpuscular Hemoglobin 30.7 pg (25.0-34.0); Mean Corpuscular Volume 90.1 fL (80.0-100.0); Platelet Count 284 K/uL (130-400); RDW Standard Deviation 43.6 fL (36.4-46.3); Red Blood Count 3.84 M/uL (4.20-5.40); White Blood Count 8.36 K/ul (4.8-10.8)
[2024-12-24 07:53] LABS: Anion Gap 9.0 (3-11); Blood Urea Nitrogen 12.0 mg/dl (6-23); Calcium 9.2 mg/dl (8.6-10.3); Carbon Dioxide 26.0 mmol/L (21-32); Chloride 100.0 mmol/L (98-107); Creatinine Clr Calc Pharmacy 76.7 ml/min; Glucose 79.0 mg/dl (70-99(Fasting)); Potassium 4.4 mmol/L (3.5-5.1); Sodium 135.0 mmol/L (136-145)
[2024-12-24 08:34] LABS: Thyroid Stimulating Hormone 1.451 uIu/ml (0.300-4.500)
[2024-12-24] MEDS: ROSUVASTATIN CALCIUM 20 MG TAB PO SCH (08:44)
[2024-12-24] MEDS: THIAMINE HCL 100 MG in SYRINGE 9 ML IV SCH (08:44)
[2024-12-24] MEDS: FOLIC ACID 1 MG in SYRINGE 9.8 ML IV SCH (08:46)
[2024-12-24 10:14] LABS: Lyme Screen Rflx Confirmation Positive (Negative)
[2024-12-24] MEDS: cefTRIAXone SODIUM 2,000 MG/50 ML BAG IV SCH (10:51)
[2024-12-24 10:58] LABS: Lyme Ab IgG 2nd Tier Confirm Positive (Negative)
[2024-12-24 10:59] LABS: Lyme Ab IgM 2nd Tier Confirm Positive (Negative)
--- NOTE | 2024-12-24 12:01 | XCELERA ---
[id number]
--- NOTE | 2024-12-24 12:02 | Cardiology Consultation ---
Date of Consultation December 24, 2024 Assessment & Plan (1) Complete heart block: (2) Lyme carditis: (3) Tobacco abuse: (4) Junctional bradycardia: (5) HTN (hypertension): Plan ASSESSMENT/PLAN: 1. Complete heart block: Sinus with A-V dissociation noted on ECG and telemetry. May be due to Lyme carditis. Currently receiving ceftriaxone. She seems to be asymptomatic in this regard. Continue telemetry. Bedrest. Pacer pads to be in place if emergent pacing is necessary. Temporary pacemaker is not currently necessary. If heart block does not resolve with treatment for Lyme, pacemaker placement may be needed. Avoid medications that may slow the heart rate. 2. Hypertension: Blood pressure elevated. Can continue home regimen. Would not aggressively treat blood pressure in the setting of bradycardia. 3. Lyme carditis: Treatment as per primary hospitalist service. 4. Tobacco abuse: Stop smoking. 5. Disposition: Cardiology will continue to follow. Patient care communicated with primary hospitalist, Dr. Archer. Highly complex medical issues. Thank you for allowing me to participate in the care of your patient. Please call for any other questions or concerns. Sincerely, Too Charles M.D. History of Present Illness Reason for Consultation: bradycardia Requesting Physician: Dr. Janice Saldana Attending Physician: Roseline Archer MD History of Present Illness Ms. Rader is a 74-year-old female with a history significant for hypertension, dyslipidemia, and TIA (2020). She was hospitalized on 12/23/2024 after an unwitnessed fall. She does not recall the details of the fall. She remembers returning home but was walking on a sidewalk between 4 PM and 5 PM on 12/23/2024 when she fell. She does not recall if she had syncope. She denies lightheadedness, chest pain, shortness of breath, palpitations or any other symptoms in relation to this. She was found to be intoxicated with alcohol by ER provider. ER provider, Dr. Cerda, had contacted me last evening and reviewed rhythm strips with him. She appeared to be in sinus rhythm with A-V dissociation and a junctional rhythm in the 40s. She was hypertensive but asymptomatic in this regard. Recommended pacer pads to be placed with atropine available at the bedside if needed. She recalls no recent tick bite and states that she has no outdoor pet nor a yard. She has not been in any type of outdoor wooded area. She does not recall any recent rash, fevers, different arthralgias. She typically ambulates with a cane. She has occasional palpitations over the past few months. She has occasional lower extremity edema if she is on her feet throughout the day. While here, she was found to have positive Lyme titer and has been placed on ceftriaxone by primary hospitalist service. Review of systems: As above. Family history: No known premature CAD. Social history: Smokes 0.5 packs/day but has smoked up to 2 packs/day. Started smoking at the age of 20. Consumes alcohol 2 to 3 days/week, 3 to 4 beers per day. She has not been . No children. Lives alone in an apartment. Retired in 2015. She was unaccompanied. Allergies Allergy/AdvReac Type Severity Reaction Status Date / Time No Known Allergies Allergy Verified 12/23/24 18:34 Home Medications Medication Instructions Recorded Confirmed Type acetaminophen 325 mg tablet 650 mg PO DIRECTED PRN Pain 06/13/21 12/23/24 History (Tylenol) lisinopril 40 mg tablet 40 mg PO DAILY 90 days #90 tabs 12/29/23 12/23/24 Rx mecobalamin (vitamin B12) 1,000 1,000 mcg sublingual DAILY 12/29/23 12/23/24 History mcg disintegrating tablet,sublingual multivitamin 1 tab PO DAILY 12/29/23 12/23/24 History rosuvastatin 40 mg tablet (Crestor) 40 mg PO DAILY #90 tabs 05/19/24 12/23/24 Rx alendronate 70 mg tablet (Fosamax) 70 mg PO .q7days 3 months #12 tabs 08/05/24 12/23/24 Rx Problem List (Updated 12/24/24 @ 16:40 by Efren Charles MD) Junctional bradycardia Tobacco abuse Lyme carditis Complete heart block Lyme disease Fall Bradycardia Osteoporosis Dyslipidemia B12 deficiency Cigarette smoker Hearing difficulty HTN (hypertension) Patient History Medical History Migraines Anxiety and depression Cyst of ovary, right Teeth missing due to periodontal disease HTN (hypertension) No pertinent family history Surgical History History of removal of ovarian cyst Hx of appendectomy No pertinent past surgical history Family History Mother Anxiety Depression Diabetes Hypertension Father Prostate cancer Social History Smoking Status: Current every day smoker Tobacco Type: Cigarettes Age Started Using Tobacco: 20; packs per day: 0.75; Cigarettes Per Day: 3/4 pack; Second Hand Exposure: No; Do You Dip or Chew Tobacco: No; Tobacco Cessation Education Requested by Patient: No Hx Alcohol Use: Yes Alcohol type: beer Hx Substance Use: No Preferred Language: Pakistani Communication Ability: Effective Manager Intensive Care Unit Required: No Beliefs That Will Affect Care: None marital status: Single Current Living Situation: Alone Current Living Situation Comment: apartment current occupational status: retired Other Information That Helps Us Care for You: No Feels Safe at Home: Yes Childhood Exposure to Second-Hand Smoke: Yes Diet: regular caffeine: Yes Dental Care, Regularly: No Physical Activity Frequency: Daily Seatbelt Use: always Sunscreen Use: No Assistive Devices: Cane and Glasses Physical Exam Physical Exam: Gen.: No acute distress. Alert and oriented. HEENT: Anicteric sclera. Neck: No JVD. No bruits. Normal carotid upstrokes bilaterally. Cardiac: Regular but bradycardic in the 40s. Normal S1-S2. 2/6 early peaking systolic ejection murmur. Pulmonary: Clear to auscultation bilaterally without wheezes, rales, or rhonchi. Abdomen: Soft, nontender, nondistended, with normoactive bowel sounds. No bruits noted. Extremities: 2+ radial pulses bilaterally. 2+ posterior tibialis pulses bilaterally. No edema or cyanosis. Results & Data Vital Signs (Past 12 Hours) Vital Signs Temp Pulse Pulse Resp BP BP Pulse Ox 12/24/24 11:37 36.4 C L 43 L 20 190/65 H 98 12/24/24 08:45 195/69 H 12/24/24 08:29 188/71 H 12/24/24 07:40 36.7 C 41 L 18 205/45 H 96 12/24/24 07:00 39 L 12/24/24 03:09 36.8 C 43 L 18 206/76 H 97 O2 Del Method 12/24/24 11:37 Room Air 12/24/24 08:45 12/24/24 08:29 12/24/24 07:40 Room Air 12/24/24 07:00 12/24/24 03:09 Room Air Laboratory Results Laboratory Results - last 24 hr 12/23/24 12/23/24 12/23/24 17:43 19:58 Unknown WBC 8.27 RBC 3.95 L Hgb 11.9 L POC Hgb 12.2 Hct 35.3 L POC Hct 36 L MCV 89.4 MCH 30.1 MCHC 33.7 RDW Std Deviation 44.1 RDW Coeff of Kurt 13.4 Plt Count 282 MPV 9.0 L Immature Gran % (Auto) 0.4 Neut % (Auto) 55.4 Lymph % (Auto) 36.4 [place] % (Auto) 6.4 Eos % (Auto) 0.7 Baso % (Auto) 0.7 Neut # (Auto) 4.58 Lymph # (Auto) 3.01 [place] # (Auto) 0.53 Eos # (Auto) 0.06 Baso # (Auto) 0.06 Immature Gran # (Auto) 0.03 PT 9.9 INR 0.9 APTT 28 PTT Ratio 1.0 POC Sodium 131 L Sodium 132 L POC Potassium 3.9 Potassium 3.9 POC Chloride 99 L Chloride 97 L Carbon Dioxide 24 POC Total CO2 22 L Anion Gap 11 POC Anion Gap 15.0 L POC BUN 11 BUN 12 Creatinine 0.57 L POC Creatinine 0.9 Est Cr Clr Drug Dosing 89.2 eGFR 96.49 BUN/Creatinine Ratio 21.1 H Glucose 95 POC Glucose (other) 94 Calcium 8.9 POC Ioniz Calcium Katie 1.11 L Phosphorus 3.1 Magnesium 2.0 Total Bilirubin 0.3 AST 18 ALT 12 Alkaline Phosphatase 86 Total Creatine Kinase 61 Total Protein 6.9 Albumin 4.1 Globulin 2.8 Albumin/Globulin Ratio 1.5 Lipase 52 TSH Urine Color Yellow Urine Appearance Clear Urine pH 5.5 Ur Specific [place] 1.015 Urine Protein Negative Urine Glucose (UA) Negative Urine Ketones Negative Urine Blood Negative Urine Nitrite Negative Urine Bilirubin Negative Urine Urobilinogen Negative Ur Leukocyte Esterase Negative Urine Comment Ethyl Alcohol mg/dL 219.2 H Lyme Disease Screen Positive H Lyme Tier 2 IgG Confirm Positive H Lyme Tier 2 IgM Confirm Positive H 12/24/24 06:59 WBC 8.36 RBC 3.84 L Hgb 11.8 L POC Hgb Hct 34.6 L POC Hct MCV 90.1 MCH 30.7 MCHC 34.1 RDW Std Deviation 43.6 RDW Coeff of Kurt 13.2 Plt Count 284 MPV 9.5 Immature Gran % (Auto) Neut % (Auto) Lymph % (Auto) [place] % (Auto) Eos % (Auto) Baso % (Auto) Neut # (Auto) Lymph # (Auto) [place] # (Auto) Eos # (Auto) Baso # (Auto) Immature Gran # (Auto) PT INR APTT PTT Ratio POC Sodium Sodium 135 L POC Potassium Potassium 4.4 POC Chloride Chloride 100 Carbon Dioxide 26 POC Total CO2 Anion Gap 9 POC Anion Gap POC BUN BUN 12 Creatinine 0.63 POC Creatinine Est Cr Clr Drug Dosing 76.7 eGFR 94.19 BUN/Creatinine Ratio 19.0 Glucose 79 POC Glucose (other) Calcium 9.2 POC Ioniz Calcium Katie Phosphorus Magnesium Total Bilirubin AST ALT Alkaline Phosphatase Total Creatine Kinase Total Protein Albumin Globulin Albumin/Globulin Ratio Lipase TSH 1.451 Urine Color Urine Appearance Urine pH Ur Specific [place] Urine Protein Urine Glucose (UA) Urine Ketones Urine Blood Urine Nitrite Urine Bilirubin Urine Urobilinogen Ur Leukocyte Esterase Urine Comment Ethyl Alcohol mg/dL Lyme Disease Screen Lyme Tier 2 IgG Confirm Lyme Tier 2 IgM Confirm Diagnostic Findings ECHO 12/24/24: 1. Normal left ventricular size with hyperdynamic systolic function. EF > 70%. No regional wall motion abnormalities. Mild concentric left ventricular hypertrophy. 2. Borderline dilated right ventricle with normal systolic function. 3. Mild left atrial dilation. 4. Mild aortic regurgitation. 5. Mild pulmonary hypertension. Estimated RVSP 40 mmHg. 6. Sinus rhythm with A-V dissociation. Ventricular rate in the low 40s bpm. 7. No prior study available for comparison. ECGs personally reviewed: ECG 12/23/2024 at 1807: Sinus with A-V dissociation and junctional rhythm. 49 bpm. Cannot rule out inferior infarct. ECG 12/24/2024 at 9:16 AM: Sinus rhythm with A-V dissociation. Junctional rhythm at 42 bpm. History and physical report reviewed. Labs reviewed: Normal potassium, normal renal function, normal transaminase levels, normal TSH, excellent lipids, mild anemia. Positive Lyme titer. Ethyl alcohol level elevated on presentation. Face CT 12/23/2024: No definite facial bone fracture per radiology. Pelvis x-ray 12/23/2024: Unremarkable per radiology. Head CT 12/23/2024: No intracranial hemorrhage per radiology. Chronic small vessel ischemic disease and cerebral atrophy. Possible inflammatory mastoi ditis. Chest x-ray 12/23/2024: Mild cardiomegaly per radiology. No infiltrate. Telemetry personally reviewed: Sinus rhythm with complete heart block. Junctional rhythm in the 40s. No significant pause. Medications Administered Current Inpatient Medications Acetaminophen (Acetaminophen 500 Mg Tab) 1,000 mg PO TID PRN PRN Reason: pain or fever Stop: 01/22/25 23:03 Last Admin: 12/23/24 23:44 Dose: 1,000 mg Atropine Sulfate (Atropine Sulfate 0.1 Mg/Ml 10ml Syr) 0.5 mg IV UD PRN PRN Reason: bradycardia Thiamine HCl 100 mg/ Syringe 10 mls @ 2 mls/min IV QAM [facility] Stop: 01/23/25 08:59 Last Admin: 12/24/24 08:44 Dose: 2 mls/min Folic Acid 1 mg/ Syringe 10 mls @ 5 mls/min IV QAM [facility] Stop: 01/23/25 08:59 Last Admin: 12/24/24 08:46 Dose: 5 mls/min Ceftriaxone Sodium (Rocephin) 2,000 mg in 50 mls @ 100 mls/hr IV Q24H [facility] Stop: 01/03/25 10:59 Last Infusion: 12/24/24 11:25 Dose: Infused Lisinopril (Lisinopril 40 Mg Tab) 40 mg PO DAILY [facility] Stop: 01/23/25 08:59 Last Admin: 12/24/24 08:44 Dose: 40 mg Lorazepam (Lorazepam 2 Mg/1 Ml Vial) 1 mg IV ONE PRN; Protocol PRN Reason: EtoH Withdrawal AWSS 6-10 Ondansetron HCl (Ondansetron Inj 2 Mg/Ml 2 Ml Vial) 4 mg IV Q6H PRN PRN Reason: Nausea And Vomiting Stop: 01/22/25 23:03 Rosuvastatin Calcium (Rosuvastatin Calcium 20 Mg Tab) 40 mg PO DAILY [facility] Stop: 01/23/25 08:59 Last Admin: 12/24/24 08:44 Dose: 40 mg PG Care Time/CCT Total # of Minutes Spent Total Time Spent with Patient: Total time spent is greater than 50% in coordination of care (as documented) at patient's floor/unit and/or counseling patient: Coding Level of Care Code 25803 INT INP/OBS CARE 3/75MIN Diagnoses Complete heart block I44.2 Lyme carditis A69.29 Tobacco abuse Z72.0 Junctional bradycardia R00.1 HTN (hypertension) I10
--- NOTE | 2024-12-24 13:24 | Hospitalist Progress Note ---
Date of Service December 24, 2024 Assessment & Plan (1) Fall: (2) Bradycardia: (3) HTN (hypertension): (4) Dyslipidemia: (5) Lyme disease: Plan 74yo female with HTN, HLP presenting with unwitnessed fall, unknown down time. #Bradycardia/Lyme disease HR between 40-45 EKG w/ concern for A-V dissociation Lyme testing + both IgG & IgM --> suspect bradycardia secondary to Lyme disease Started Rocephin 12/24 Echocardiogram: EF >70%; borderline dilated RV; mild LA dilation; mild aortic regurgitation; mild pulm HTN; sinus rhythm w/ A-V dissociation, Rate in low 40s bpm Cardiology consulted --> recommending Rocephin for Lyme Carditis & bed rest. Pacer pads in place but does not require temporary pacing at this time. Atropine as needed for sustained or symptomatic bradycardia. #Fall - unwitnessed fall. Patient has had gait instability in the past and has completed several sessions of PT/OT. She denies falling frequently of late. 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 Fall precautions Tylenol prn for pain #Alcohol intoxication Alc level 219 on admission Reports daily alcohol use w/ 3-4 beers daily AWSS + Ativan prn protocol Continue Thiamine & Folic acid supplements daily. #Hypertension Has been significantly hypertensive thus far Continue Lisinopril 40mg po daily Continue to monitor pressures closely, consider addition of amlodpine to BP regimen. #Hyperlipidemia -Continue Crestor 40mg po daily DVT prophylaxis: SCD's Code: Full Admission and Anticipated Discharge Date Admission Date: December 23, 2024 Subjective Karon seen and examined this morning. States she is feeling tired today but denies any additional complaints. Denies CP, SOB, abdominal pain. Informed her of positive lyme testing & she states she has never had lyme disease in past. States she is unaware of any tick bites recently. Physical Exam Constitutional: WD/WN, vitals as above Eyes: PERRL, conjunctivae normal, anicteric sclerae Respiratory: normal respiratory effort, lungs clear to auscultation Cardiovascular: bradycardic w/ regular rhythm, no LE edema Neurologic: PERRL, EOMI, accommodation nl, no face palsy, no dysarthria Psychiatric: A+Ox3, euthymic affect Results & Data Results & Data Vital Signs (Past 12 Hours) Vital Signs Temp Pulse Pulse Resp BP BP Pulse Ox 12/24/24 11:37 36.4 C L 43 L 20 190/65 H 98 12/24/24 08:45 195/69 H 12/24/24 08:29 188/71 H 12/24/24 07:40 36.7 C 41 L 18 205/45 H 96 12/24/24 07:00 39 L 12/24/24 03:09 36.8 C 43 L 18 206/76 H 97 O2 Del Method 12/24/24 11:37 Room Air 12/24/24 08:45 12/24/24 08:29 12/24/24 07:40 Room Air 12/24/24 07:00 12/24/24 03:09 Room Air PG Care Time/CCT Total # of Minutes Spent Total Time Spent with Patient: Total time spent is greater than 50% in coordination of care (as documented) at patient's floor/unit and/or counseling patient: Coding Level of Care Code 01793 SUB INP/OBS CARE 3/50MIN Diagnoses Fall W19.XXXA Bradycardia R00.1 HTN (hypertension) I10 Dyslipidemia E78.5 Lyme disease A69.20
[2024-12-25 06:18] LABS: Hematocrit (blood only) 33.4 % (37.0-47.0); Hemoglobin 11.4 g/dl (12.0-16.0); Mean Corpuscular Hemoglobin 30.9 pg (25.0-34.0); Mean Corpuscular Volume 90.5 fL (80.0-100.0); Platelet Count 266 K/uL (130-400); RDW Standard Deviation 43.7 fL (36.4-46.3); Red Blood Count 3.69 M/uL (4.20-5.40); White Blood Count 7.14 K/ul (4.8-10.8)
[2024-12-25 06:54] LABS: Anion Gap 7.0 (3-11); Blood Urea Nitrogen 11.0 mg/dl (6-23); Calcium 9.0 mg/dl (8.6-10.3); Carbon Dioxide 30.0 mmol/L (21-32); Chloride 99.0 mmol/L (98-107); Creatinine Clr Calc Pharmacy 66.3 ml/min; Glucose 87.0 mg/dl (70-99(Fasting)); Potassium 4.2 mmol/L (3.5-5.1); Sodium 136.0 mmol/L (136-145)
--- NOTE | 2024-12-25 10:48 | Electrocardiogram Report ---
Test Reason : Blood Pressure : */* mmHG Vent. Rate : 49 BPM Atrial Rate : 104 BPM P-R Int : * ms QRS Dur : 66 ms QT Int : 444 ms P-R-T Axes : * -9 -22 degrees QTcB Int : 401 ms Sinus tachycardia with A-V dissociation and Junctional rhythm Cannot rule out Inferior infarct , age undetermined Abnormal ECG No previous ECGs available Confirmed by Efren Charles ([id number]) on 12/25/2024 10:48:34 AM Referred By: REFERRED SELF Confirmed By: Efren Charles
--- NOTE | 2024-12-25 10:50 | Electrocardiogram Report ---
Test Reason : Blood Pressure : */* mmHG Vent. Rate : 42 BPM Atrial Rate : 93 BPM P-R Int : * ms QRS Dur : 60 ms QT Int : 470 ms P-R-T Axes : 57 76 83 degrees QTcB Int : 392 ms Sinus rhythm with A-V dissociation and Junctional bradycardia Nonspecific ST and T wave abnormality Abnormal ECG When compared with ECG of 23-Dec-2024 18:07, Borderline criteria for Inferior infarct are no longer Present Confirmed by Efren Charles ([id number]) on 12/25/2024 10:49:54 AM Referred By: REFERRED SELF Confirmed By: Efren Charles
--- NOTE | 2024-12-25 10:52 | Electrocardiogram Report ---
Test Reason : Blood Pressure : */* mmHG Vent. Rate : 47 BPM Atrial Rate : 96 BPM P-R Int : * ms QRS Dur : 74 ms QT Int : 452 ms P-R-T Axes : 73 37 61 degrees QTcB Int : 400 ms Sinus rhythm with A-V dissociation and junctional bradycardia Nonspecific ST abnormality Abnormal ECG When compared with ECG of 24-Dec-2024 09:16, No significant change Confirmed by Efren Charles ([id number]) on 12/25/2024 10:52:07 AM Referred By: REFERRED SELF Confirmed By: Efren Charles
--- NOTE | 2024-12-25 10:53 | Cardiology Progress Note ---
Date of Service December 25, 2024 Assessment & Plan (1) Complete heart block: (2) Lyme carditis: (3) Tobacco abuse: (4) Junctional bradycardia: (5) HTN (hypertension): Plan ASSESSMENT/PLAN: 1. Complete heart block: Sinus with A-V dissociation noted on ECG and telemetry. May be due to Lyme carditis. Currently receiving ceftriaxone. She seems to be asymptomatic in this regard. Continue telemetry. Daily ECG. Bedrest. Pacer pads to be in place if emergent pacing is necessary. Temporary pacemaker is not currently necessary. If heart block does not resolve with treatment for Lyme, pacemaker placement may be needed. Avoid medications that may slow the heart rate. 2. Hypertension: Blood pressure elevated. Can continue home regimen. Would not aggressively treat blood pressure in the setting of significant bradycardia. 3. Lyme carditis: Treatment as per primary hospitalist service. 4. Tobacco abuse: Stop smoking. 5. Disposition: Cardiology will continue to follow. Patient care communicated with primary hospitalist, Natividad Zhao. Admission and Anticipated Discharge Date Admission Date: December 23, 2024 Subjective She denies chest pain, shortness of breath, syncope, near syncope, palpitations, or edema. She had no specific complaints today. She was unaccompanied. Physical Exam Physical Exam: Gen.: No acute distress. Alert. HEENT: Anicteric sclera. Neck: No JVD. Cardiac: Regular but bradycardic in the 40s. Normal S1-S2. 2/6 early peaking systolic ejection murmur. Pulmonary: Clear to auscultation bilaterally without wheezes, rales, or rhonchi. Abdomen: Soft, nontender, nondistended, with normoactive bowel sounds. No bruits noted. Extremities: 2+ radial pulses bilaterally. 2+ posterior tibialis pulses bilaterally. No edema or cyanosis. Results & Data Vital Signs (Past 12 Hours) Vital Signs Temp Pulse Pulse Resp BP Pulse Ox Pulse Ox 12/25/24 07:36 36.9 C 44 L 20 180/67 H 98 12/25/24 07:00 43 L 12/25/24 02:15 36.5 C 43 L 16 179/67 H 96 12/24/24 23:19 36.7 C 73 16 141/58 H 96 12/24/24 23:04 96 O2 Del Method O2 Del Method 12/25/24 07:36 Room Air 12/25/24 07:00 12/25/24 02:15 Room Air 12/24/24 23:19 Room Air 12/24/24 23:04 Room Air Laboratory Results Laboratory Results - last 24 hr 12/23/24 12/25/24 Unknown 05:50 WBC 7.14 RBC 3.69 L Hgb 11.4 L Hct 33.4 L MCV 90.5 MCH 30.9 MCHC 34.1 RDW Std Deviation 43.7 RDW Coeff of Kurt 13.2 Plt Count 266 MPV 9.4 Sodium 136 Potassium 4.2 Chloride 99 Carbon Dioxide 30 Anion Gap 7 BUN 11 Creatinine 0.72 Est Cr Clr Drug Dosing 66.3 eGFR 88.78 BUN/Creatinine Ratio 15.3 Glucose 87 Calcium 9.0 Lyme Tier 2 IgG Confirm Positive H Lyme Tier 2 IgM Confirm Positive H Diagnostic Findings ECG personally reviewed 12/25/2024: Sinus rhythm with high-grade AV block (still appears to be A-V dissociation) with junctional bradycardia at 47 bpm. Nons pecific T wave abnormality. Labs from 12/25/2024 demonstrated normal renal function, normal potassium, stable hemoglobin. Telemetry personally reviewed: Sinus rhythm with third-degree AV block. Junc tional bradycardia. Medications Administered Current Inpatient Medications Acetaminophen (Acetaminophen 500 Mg Tab) 1,000 mg PO TID PRN PRN Reason: pain or fever Stop: 01/22/25 23:03 Last Admin: 12/24/24 20:27 Dose: 1,000 mg Atropine Sulfate (Atropine Sulfate 0.1 Mg/Ml 10ml Syr) 0.5 mg IV UD PRN PRN Reason: bradycardia Thiamine HCl 100 mg/ Syringe 10 mls @ 2 mls/min IV QAM [facility] Stop: 01/23/25 08:59 Last Admin: 12/25/24 08:23 Dose: 2 mls/min Folic Acid 1 mg/ Syringe 10 mls @ 5 mls/min IV QAM [facility] Stop: 01/23/25 08:59 Last Admin: 12/25/24 08:23 Dose: 5 mls/min Ceftriaxone Sodium (Rocephin) 2,000 mg in 50 mls @ 100 mls/hr IV Q24H [facility] Stop: 01/03/25 10:59 Last Admin: 12/25/24 10:30 Dose: 100 mls/hr Lisinopril (Lisinopril 40 Mg Tab) 40 mg PO DAILY [facility] Stop: 01/23/25 08:59 Last Admin: 12/25/24 08:22 Dose: 40 mg Lorazepam (Lorazepam 2 Mg/1 Ml Vial) 1 mg IV ONE PRN; Protocol PRN Reason: EtoH Withdrawal AWSS 6-10 Ondansetron HCl (Ondansetron Inj 2 Mg/Ml 2 Ml Vial) 4 mg IV Q6H PRN PRN Reason: Nausea And Vomiting Stop: 01/22/25 23:03 Rosuvastatin Calcium (Rosuvastatin Calcium 20 Mg Tab) 40 mg PO DAILY [facility] Stop: 01/23/25 08:59 Last Admin: 12/25/24 08:22 Dose: 40 mg PG Care Time/CCT Total # of Minutes Spent Total Time Spent with Patient: Total time spent is greater than 50% in coordination of care (as documented) at patient's floor/unit and/or counseling patient: Coding Level of Care Code 38483 SUB INP/OBS CARE 3/50MIN Diagnoses Complete heart block I44.2 Lyme carditis A69.29 Tobacco abuse Z72.0 Junctional bradycardia R00.1 HTN (hypertension) I10
--- NOTE | 2024-12-25 12:27 | Hospitalist Progress Note ---
Date of Service December 25, 2024 Assessment & Plan (1) Fall: (2) Bradycardia: (3) HTN (hypertension): (4) Dyslipidemia: (5) Lyme disease: Plan 74yo female with HTN, HLP presenting with unwitnessed fall, unknown down time. #Bradycardia/Lyme Carditis HR between 40-45 EKG w/ concern for A-V dissociation. Lyme testing + both IgG & IgM --> suspect bradycardia secondary to Lyme disease (Lyme Carditits) Started Rocephin 12/24, continue. Echocardiogram: EF >70%; borderline dilated RV; mild LA dilation; mild aortic regurgitation; mild pulm HTN; sinus rhythm w/ A-V dissociation, Rate in low 40s bpm Cardiology consulted --> recommending Rocephin for Lyme Carditis & bed rest. Pacer pads in place but does not require temporary pacing at this time. Daily EKGs' Atropine as needed for sustained or symptomatic bradycardia. #Fall - unwitnessed fall. Patient has had gait instability in the past and has completed several sessions of PT/OT. She denies falling frequently of late. 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 Fall precautions Tylenol prn for pain #Alcohol intoxication Alc level 219 on admission Reports daily alcohol use w/ 3-4 beers daily AWSS + Ativan prn protocol Continue Thiamine & Folic acid supplements daily. #Hypertension Has been significantly hypertensive thus far Continue Lisinopril 40mg po daily Continue to monitor pressures closely, cardio recommending to not aggressively treat bp secondary to bradycardia. #Hyperlipidemia Continue Crestor 40mg po daily #Onychogryphosis - referral to podiatry on discharge. DVT prophylaxis: SCD's Code: Full Admission and Anticipated Discharge Date Admission Date: December 23, 2024 Subjective Karon was seen and examined this morning. She reports to be feeling better today. Denies CP or SOB. Physical Exam Constitutional: WD/WN, vitals as above Eyes: PERRL, conjunctivae normal, anicteric sclerae Respiratory: normal respiratory effort, lungs clear to auscultation Cardiovascular: bradycardia, regular rhythm. no LE edema Skin: Onychogryphosis observed on toenails. Neurologic: PERRL, EOMI, accommodation nl, no face palsy, no dysarthria Psychiatric: A+Ox3, euthymic affect Results & Data Results & Data Vital Signs (Past 12 Hours) Vital Signs Temp Pulse Pulse Resp BP Pulse Ox O2 Del Method 12/25/24 11:43 36.8 C 49 L 20 167/67 H 97 Room Air 12/25/24 07:36 36.9 C 44 L 20 180/67 H 98 Room Air 12/25/24 07:00 43 L 12/25/24 02:15 36.5 C 43 L 16 179/67 H 96 Room Air PG Care Time/CCT Total # of Minutes Spent Total Time Spent with Patient: Total time spent is greater than 50% in coordination of care (as documented) at patient's floor/unit and/or counseling patient: Coding Level of Care Code 39210 SUB INP/OBS CARE 3/50MIN Diagnoses Fall W19.XXXA Bradycardia R00.1 HTN (hypertension) I10 Dyslipidemia E78.5 Lyme disease A69.20
[2024-12-26 06:53] LABS: Hematocrit (blood only) 33.4 % (37.0-47.0); Hemoglobin 11.0 g/dl (12.0-16.0); Mean Corpuscular Hemoglobin 30.1 pg (25.0-34.0); Mean Corpuscular Volume 91.5 fL (80.0-100.0); Platelet Count 251 K/uL (130-400); RDW Standard Deviation 45.4 fL (36.4-46.3); Red Blood Count 3.65 M/uL (4.20-5.40); White Blood Count 7.15 K/ul (4.8-10.8)
[2024-12-26 07:07] LABS: Anion Gap 6.0 (3-11); Blood Urea Nitrogen 10.0 mg/dl (6-23); Calcium 8.7 mg/dl (8.6-10.3); Carbon Dioxide 29.0 mmol/L (21-32); Chloride 99.0 mmol/L (98-107); Creatinine Clr Calc Pharmacy 66.4 ml/min; Glucose 96.0 mg/dl (70-99(Fasting)); Magnesium 1.9 mg/dl (1.7-2.4); Potassium 3.9 mmol/L (3.5-5.1); Sodium 134.0 mmol/L (136-145)
[2024-12-26] MEDS: FOLIC ACID 1 MG TAB PO SCH (08:28)
[2024-12-26] MEDS: THIAMINE HCL 100 MG TAB PO SCH (08:28)
--- NOTE | 2024-12-26 10:39 | Cardiology Progress Note ---
Date of Service December 26, 2024 Assessment & Plan (1) Complete heart block: (2) Lyme carditis: (3) Tobacco abuse: (4) Junctional bradycardia: (5) HTN (hypertension): Plan ASSESSMENT/PLAN: 1. Complete heart block: Sinus with A-V dissociation noted on ECG and telemetry. May be due to Lyme carditis. Currently receiving ceftriaxone. Continue telemetry. Daily ECG. Bedrest. Pacer pads to be in place if emergent pacing is necessary. Temporary pacemaker is not currently necessary. If heart block does not resolve with treatment for Lyme, pacemaker placement may be needed. Avoid medications that may slow the heart rate. Continue to monitor. She remains asymptomatic. 2. Hypertension: Blood pressure mildly elevated. Can continue home regimen. Would not aggressively treat blood pressure in the setting of significant bradycardia. 3. Lyme carditis: Treatment as per primary hospitalist service. 4. Tobacco abuse: Stop smoking. 5. Disposition: Cardiology will continue to follow. Admission and Anticipated Discharge Date Admission Date: December 23, 2024 Subjective She remains asymptomatic. She denies chest pain, shortness of breath, syncope, near syncope, palpitations, or edema. She was unaccompanied. Physical Exam Physical Exam: Gen.: No acute distress. Alert. HEENT: Anicteric sclera. Neck: No JVD. Cardiac: Regular but bradycardic. Normal S1-S2. 2/6 early peaking systolic ejection murmur. Pulmonary: Clear to auscultation bilaterally without wheezes, rales, or rhonchi. Abdomen: Soft, nontender, nondistended, with normoactive bowel sounds. No bruits noted. Extremities: 2+ radial pulses bilaterally. 2+ posterior tibialis pulses bilaterally. No edema or cyanosis. Results & Data Vital Signs (Past 12 Hours) Vital Signs Temp Pulse Resp BP BP Pulse Ox Pulse Ox 12/26/24 08:00 36.6 C 48 L 21 143/65 H 96 12/26/24 04:11 37.5 C 45 L 18 148/65 H 96 12/25/24 23:00 98 12/25/24 22:39 37.9 C H 46 L 16 168/64 H 98 O2 Del Method O2 Del Method 12/26/24 08:00 Room Air 12/26/24 04:11 Room Air 12/25/24 23:00 Room Air 12/25/24 22:39 Room Air Laboratory Results Laboratory Results - last 24 hr 12/26/24 06:00 WBC 7.15 RBC 3.65 L Hgb 11.0 L Hct 33.4 L MCV 91.5 MCH 30.1 MCHC 32.9 RDW Std Deviation 45.4 RDW Coeff of Kurt 13.4 Plt Count 251 MPV 9.7 Sodium 134 L Potassium 3.9 Chloride 99 Carbon Dioxide 29 Anion Gap 6 BUN 10 Creatinine 0.72 Est Cr Clr Drug Dosing 66.4 eGFR 88.78 BUN/Creatinine Ratio 13.9 Glucose 96 Calcium 8.7 Magnesium 1.9 Diagnostic Findings ECG personally reviewed from 12/26/2024: Sinus rhythm with complete heart block and junctional rhythm. 45 bpm. Septal infarct. Labs reviewed from 12/26/2024: Normal potassium, stable renal function, mild anemia. Telemetry personally reviewed: Sinus rhythm with third-degree heart block. Junctional rhythm. Heart rate upper 40s mostly. Medications Administered Current Inpatient Medications Acetaminophen (Acetaminophen 500 Mg Tab) 1,000 mg PO TID PRN PRN Reason: pain or fever Stop: 01/22/25 23:03 Last Admin: 12/25/24 22:44 Dose: 1,000 mg Atropine Sulfate (Atropine Sulfate 0.1 Mg/Ml 10ml Syr) 0.5 mg IV UD PRN PRN Reason: bradycardia Folic Acid (Folic Acid 1 Mg Tab) 1 mg PO QAM [facility] Stop: 01/25/25 08:59 Last Admin: 12/26/24 08:28 Dose: 1 mg Ceftriaxone Sodium (Rocephin) 2,000 mg in 50 mls @ 100 mls/hr IV Q24H [facility] Stop: 01/03/25 10:59 Last Infusion: 12/25/24 11:04 Dose: Infused Lisinopril (Lisinopril 40 Mg Tab) 40 mg PO DAILY [facility] Stop: 01/23/25 08:59 Last Admin: 12/26/24 08:28 Dose: 40 mg Lorazepam (Lorazepam 2 Mg/1 Ml Vial) 1 mg IV ONE PRN; Protocol PRN Reason: EtoH Withdrawal AWSS 6-10 Ondansetron HCl (Ondansetron Inj 2 Mg/Ml 2 Ml Vial) 4 mg IV Q6H PRN PRN Reason: Nausea And Vomiting Stop: 01/22/25 23:03 Rosuvastatin Calcium (Rosuvastatin Calcium 20 Mg Tab) 40 mg PO DAILY [facility] Stop: 01/23/25 08:59 Last Admin: 12/26/24 08:28 Dose: 40 mg Thiamine HCl (Thiamine Hcl 100 Mg Tab) 100 mg PO QAM [facility] Stop: 01/25/25 08:59 Last Admin: 12/26/24 08:28 Dose: 100 mg PG Care Time/CCT Total # of Minutes Spent Total Time Spent with Patient: Total time spent is greater than 50% in coordination of care (as documented) at patient's floor/unit and/or counseling patient: Coding Level of Care Code 57638 SUB INP/OBS CARE 3/50MIN Diagnoses Complete heart block I44.2 Lyme carditis A69.29 Tobacco abuse Z72.0 Junctional bradycardia R00.1 HTN (hypertension) I10
--- NOTE | 2024-12-26 14:20 | Hospitalist Progress Note ---
Date of Service December 26, 2024 Assessment & Plan (1) Fall: (2) Bradycardia: (3) HTN (hypertension): (4) Dyslipidemia: (5) Lyme disease: Plan 74yo female with HTN, HLP presenting with unwitnessed fall, unknown down time. #Bradycardia/Lyme Carditis HR between 40-45 EKG w/ concern for A-V dissociation. Lyme testing + both IgG & IgM --> suspect bradycardia secondary to Lyme disease (Lyme Carditits) Started Rocephin 12/24, continue. Echocardiogram: EF >70%; borderline dilated RV; mild LA dilation; mild aortic regurgitation; mild pulm HTN; sinus rhythm w/ A-V dissociation, Rate in low 40s bpm Cardiology consulted --> recommending Rocephin for Lyme Carditis & bed rest. Pacer pads in place but does not require temporary pacing at this time. Daily EKGs' Atropine as needed for sustained or symptomatic bradycardia. #Fall - unwitnessed fall. Patient has had gait instability in the past and has completed several sessions of PT/OT. She denies falling frequently of late. 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 Fall precautions Tylenol prn for pain #Alcohol intoxication Alc level 219 on admission Reports daily alcohol use w/ 3-4 beers daily AWSS + Ativan prn protocol Continue Thiamine & Folic acid supplements daily. #Hypertension Has been significantly hypertensive thus far Continue Lisinopril 40mg po daily Continue to monitor pressures closely, cardio recommending to not aggressively treat bp secondary to bradycardia. #Hyperlipidemia Continue Crestor 40mg po daily #Onychogryphosis - referral to podiatry on discharge. DVT prophylaxis: SCD's Code: Full Admission and Anticipated Discharge Date Admission Date: December 23, 2024 Subjective Karon seen and examined this morning. Reports to be feeling well today, denied any complaints. Physical Exam Constitutional: WD/WN, vitals as above Respiratory: normal respiratory effort, lungs clear to auscultation Cardiovascular: bradycardic, no LE edema, normal rhythm Neurologic: PERRL, EOMI, accommodation nl, no face palsy, no dysarthria Psychiatric: A+Ox3, euthymic affect Results & Data Results & Data Vital Signs (Past 12 Hours) Vital Signs Temp Pulse Resp BP BP Pulse Ox O2 Del Method 12/26/24 10:56 36.7 C 48 L 18 157/73 H 98 Room Air 12/26/24 08:00 36.6 C 48 L 21 143/65 H 96 Room Air 12/26/24 04:11 37.5 C 45 L 18 148/65 H 96 Room Air PG Care Time/CCT Total # of Minutes Spent Total Time Spent with Patient: Total time spent is greater than 50% in coordination of care (as documented) at patient's floor/unit and/or counseling patient: Coding Level of Care Code 80289 SUB INP/OBS CARE 2/35MIN Diagnoses Fall W19.XXXA Bradycardia R00.1 HTN (hypertension) I10 Dyslipidemia E78.5 Lyme disease A69.20
--- NOTE | 2024-12-27 05:39 | Electrocardiogram Report ---
Test Reason : Blood Pressure : */* mmHG Vent. Rate : 45 BPM Atrial Rate : 72 BPM P-R Int : * ms QRS Dur : 76 ms QT Int : 460 ms P-R-T Axes : 69 37 52 degrees QTcB Int : 397 ms Sinus rhythm with complete heart block and Junctional rhythm Septal infarct , age undetermined T wave abnormality, consider anterior ischemia Abnormal ECG When compared with ECG of 25-Dec-2024 08:01, No significant change Confirmed by Efren Charles ([id number]) on 12/27/2024 5:39:29 AM Referred By: REFERRED SELF Confirmed By: Efren Charles
[2024-12-27 07:24] LABS: Hematocrit (blood only) 36.1 % (37.0-47.0); Hemoglobin 12.0 g/dl (12.0-16.0); Mean Corpuscular Hemoglobin 30.7 pg (25.0-34.0); Mean Corpuscular Volume 92.3 fL (80.0-100.0); Platelet Count 286 K/uL (130-400); RDW Standard Deviation 45.5 fL (36.4-46.3); Red Blood Count 3.91 M/uL (4.20-5.40); White Blood Count 7.02 K/ul (4.8-10.8)
[2024-12-27 08:20] LABS: Anion Gap 6.0 (3-11); Blood Urea Nitrogen 11.0 mg/dl (6-23); Calcium 9.0 mg/dl (8.6-10.3); Carbon Dioxide 30.0 mmol/L (21-32); Chloride 101.0 mmol/L (98-107); Creatinine Clr Calc Pharmacy 63.8 ml/min; Glucose 92.0 mg/dl (70-99(Fasting)); Magnesium 2.0 mg/dl (1.7-2.4); Potassium 4.6 mmol/L (3.5-5.1); Sodium 137.0 mmol/L (136-145)
--- NOTE | 2024-12-27 11:50 | Cardiology Progress Note ---
Date of Service December 27, 2024 Assessment & Plan (1) Complete heart block: (2) Lyme carditis: (3) Tobacco abuse: (4) Junctional bradycardia: (5) HTN (hypertension): Plan ASSESSMENT/PLAN: 1. Complete heart block: Sinus with A-V dissociation noted on ECG and telemetry. May be due to Lyme carditis, but no significant improvement thus far. Currently receiving ceftriaxone (started 12/24/2024). Continue telemetry. Daily ECG. Bedrest. Pacer pads to be in place if emergent pacing is necessary. Temporary pacemaker is not currently necessary. If heart block does not resolve with treatment for Lyme, pacemaker placement may be needed. Avoid medications that may slow the heart rate. Continue to monitor. She remains asymptomatic. If no improvement within the next 1 to 2 days, will ask for electrophysiology input, when available. 2. Hypertension: Blood pressure mildly elevated. Can continue home regimen. Would not aggressively treat blood pressure in the setting of significant bradycardia. 3. Lyme carditis: Treatment as per primary hospitalist service. 4. Tobacco abuse: Stop smoking. 5. Disposition: Cardiology will continue to follow. Patient care discussed with Dr. Archer of the primary hospitalist service. Admission and Anticipated Discharge Date Admission Date: December 23, 2024 Subjective Patient seen earlier today. She was unaccompanied. She denies chest pain, shortness of breath, palpitations, edema, syncope, near syncope. Physical Exam Physical Exam: Gen.: No acute distress. Alert. HEENT: Anicteric sclera. Neck: No JVD. Cardiac: Regular. Heart rate near 50 bpm. Normal S1-S2. 2/6 early peaking systolic ejection murmur. Pulmonary: Clear to auscultation bilaterally without wheezes, rales, or rhonchi. Abdomen: Soft, nontender, nondistended, with normoactive bowel sounds. No bruits noted. Extremities: 2+ radial pulses bilaterally. 2+ posterior tibialis pulses bilaterally. No edema or cyanosis. Results & Data Vital Signs (Past 12 Hours) Vital Signs Temp Pulse Resp BP Pulse Ox O2 Del Method 12/27/24 08:19 36.8 C 49 L 12 104/54 L 97 Room Air 12/27/24 03:30 36.5 C 44 L 18 158/70 H 95 Room Air Laboratory Results Laboratory Results - last 24 hr 12/27/24 05:59 WBC 7.02 RBC 3.91 L Hgb 12.0 Hct 36.1 L MCV 92.3 MCH 30.7 MCHC 33.2 RDW Std Deviation 45.5 RDW Coeff of Kurt 13.4 Plt Count 286 MPV 10.0 Sodium 137 Potassium 4.6 Chloride 101 Carbon Dioxide 30 Anion Gap 6 BUN 11 Creatinine 0.75 Est Cr Clr Drug Dosing 63.8 eGFR 84.54 BUN/Creatinine Ratio 14.7 Glucose 92 Calcium 9.0 Magnesium 2.0 Diagnostic Findings Labs reviewed notable for normal renal function, normal potassium, normal blood counts. ECG personally reviewed from 12/27/2024: Sinus rhythm with complete heart block and junctional bradycardia. 44 bpm. Septal infarct. Telemetry personally reviewed: Sinus rhythm with complete heart block. Junctional rhythm near 50 bpm. Medications Administered Current Inpatient Medications Acetaminophen (Acetaminophen 500 Mg Tab) 1,000 mg PO TID PRN PRN Reason: pain or fever Stop: 01/22/25 23:03 Last Admin: 12/26/24 13:46 Dose: 1,000 mg Atropine Sulfate (Atropine Sulfate 0.1 Mg/Ml 10ml Syr) 0.5 mg IV UD PRN PRN Reason: bradycardia Folic Acid (Folic Acid 1 Mg Tab) 1 mg PO QAM [facility] Stop: 01/25/25 08:59 Last Admin: 12/27/24 08:19 Dose: 1 mg Ceftriaxone Sodium (Rocephin) 2,000 mg in 50 mls @ 100 mls/hr IV Q24H [facility] Stop: 01/03/25 10:59 Last Infusion: 12/26/24 13:02 Dose: Infused Lisinopril (Lisinopril 40 Mg Tab) 40 mg PO DAILY [facility] Stop: 01/23/25 08:59 Last Admin: 12/27/24 08:19 Dose: 40 mg Lorazepam (Lorazepam 2 Mg/1 Ml Vial) 1 mg IV ONE PRN; Protocol PRN Reason: EtoH Withdrawal AWSS 6-10 Ondansetron HCl (Ondansetron Inj 2 Mg/Ml 2 Ml Vial) 4 mg IV Q6H PRN PRN Reason: Nausea And Vomiting Stop: 01/22/25 23:03 Rosuvastatin Calcium (Rosuvastatin Calcium 20 Mg Tab) 40 mg PO DAILY [facility] Stop: 01/23/25 08:59 Last Admin: 12/27/24 08:19 Dose: 40 mg Thiamine HCl (Thiamine Hcl 100 Mg Tab) 100 mg PO QAM [facility] Stop: 01/25/25 08:59 Last Admin: 12/27/24 08:19 Dose: 100 mg PG Care Time/CCT Total # of Minutes Spent Total Time Spent with Patient: Total time spent is greater than 50% in coordination of care (as documented) at patient's floor/unit and/or counseling patient: Coding Level of Care Code 22650 SUB INP/OBS CARE 3/50MIN Diagnoses Complete heart block I44.2 Lyme carditis A69.29 Tobacco abuse Z72.0 Junctional bradycardia R00.1 HTN (hypertension) I10
[2024-12-27] MEDS: THIAMINE HCL 500 MG in SODIUM CHLORIDE 0.9% 50 ML IV SCH (15:22)
--- NOTE | 2024-12-27 18:13 | Hospitalist Progress Note ---
Date of Service December 27, 2024 Assessment & Plan (1) Lyme carditis: (2) Bradycardia: (3) HTN (hypertension): (4) Lyme disease: Plan 74yo female with HTN, HLP presenting with unwitnessed fall, unknown down time. #Bradycardia/Lyme Carditis HR between 40-50, not symptomatic at least in bedrest, no syncopal events EKG w/ concern for A-V dissociation. Lyme testing + both IgG & IgM --> suspect bradycardia secondary to Lyme disease (Lyme Carditits) Started Rocephin 12/24, continue. Echocardiogram: EF >70%; borderline dilated RV; mild LA dilation; mild aortic regurgitation; mild pulm HTN; sinus rhythm w/ A-V dissociation, Rate in low 40s bpm Cardiology consulted --> recommending Rocephin for Lyme Carditis & bed rest. Pacer pads in place but does not require temporary pacing at this time. Daily EKGs' Atropine as needed for sustained or symptomatic bradycardia. Monitor and replace potassium calcium and mag - normal today Bradycardia has not yet improved. Discussed with Dr. Charles, continue current treatment. Also unclear what her baseline actually is #Hypertension Has been significantly hypertensive thus far Continue Lisinopril 40mg po daily Continue to monitor pressures closely, cardio recommending to not aggressively treat bp secondary to bradycardia. #possible cognitive impairment, context of alcoholism -empirically replace thiamine with 500 mg IV q8h x 8 doses then change to oral -check B12 #Fall - unwitnessed fall. Patient has had gait instability in the past and has completed several sessions of PT/OT. She denies falling frequently of late. 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 Fall precautions Tylenol prn for pain #Alcohol intoxication, alcohol use disorder Alc level 219 on admission Reports daily alcohol use w/ 3-4 beers daily AWSS + Ativan prn protocol - no evidence of withdrawal thus far Continue Thiamine & Folic acid supplements daily. #Hyperlipidemia Continue Crestor 40mg po daily #Onychogryphosis - referral to podiatry on discharge. Reviewed CBC - W7, Hg12, Plt 286 Reviewed BMP - normal. K 4.6, Cr 0.75, mag 2.0 DVT prophylaxis: SCD's Code: Full Admission and Anticipated Discharge Date Admission Date: December 23, 2024 Subjective she asks questions for things but not apropos to the situation of talking to her physician, for example wants lip balm and wants me to picking crew supervisor fissured on the floor and put it in the trash can, wants a phone band singer no questions about medical issues no chest pain or lightheadedness Physical Exam 2 Physical Exam: Last 24h vitals reviewed GEN: no acute distress, sitting in bed, disheveled appearing HEENT: pupils equal, sclerae anicteric, moist MM. lips are dry with lower lip bruising and abrasion upper lip RESP: normal WOB, CTAB CV: bk reg no mrg ABD: soft/nt/nd +BT : no sepulveda SKIN: warm and dry, no generalized rashes. Flaky dermatitis on shins, eczema elbows, michelle derm on face NEURO: AOx person, place, and partially to situation. Not able to engage infull with conversation about her health, though knows heart is slow and may need pacemaker. Replies with paucity of content. Face symmetric, speech normal, moves 4 ext spontaneously and equally Results & Data Results & Data Vital Signs (Past 12 Hours) Vital Signs Temp Pulse Pulse Resp BP Pulse Ox O2 Del Method 12/27/24 16:15 37.3 C 50 L 16 152/70 H 96 Room Air 12/27/24 13:58 50 L 12/27/24 11:59 36.8 C 48 L 16 166/70 H 98 Room Air 12/27/24 08:19 36.8 C 49 L 12 104/54 L 97 Room Air Laboratory Results 12/27/24 05:59 12/27/24 05:59 PG Care Time/CCT Total # of Minutes Spent Total Time Spent with Patient: Total time spent is greater than 50% in coordination of care (as documented) at patient's floor/unit and/or counseling patient: Coding Level of Care Code 86465 SUB INP/OBS CARE 2/35MIN Diagnoses Lyme carditis A69.29 Bradycardia R00.1 HTN (hypertension) I10 Lyme disease A69.20
--- NOTE | 2024-12-27 22:32 | Electrocardiogram Report ---
Test Reason : Blood Pressure : */* mmHG Vent. Rate : 44 BPM Atrial Rate : 75 BPM P-R Int : * ms QRS Dur : 80 ms QT Int : 468 ms P-R-T Axes : 71 42 69 degrees QTcB Int : 400 ms Sinus rhythm with complete heart block and Junctional bradycardia Septal infarct (cited on or before 26-Dec-2024) Abnormal ECG When compared with ECG of 26-Dec-2024 06:24, No significant change was found Confirmed by Efren Charles ([id number]) on 12/27/2024 10:32:04 PM Referred By: REFERRED SELF Confirmed By: Efren Charles
[2024-12-28] MEDS: PNEUMOCOCCAL VACCINE (PCV20) 20-VAL CONJ-DIP CRM/PF 0.5 ML SYR IM ONE (10:24)
--- NOTE | 2024-12-28 13:08 | Hospitalist Progress Note ---
Date of Service December 28, 2024 Assessment & Plan (1) Lyme carditis: (2) Bradycardia: (3) HTN (hypertension): (4) Lyme disease: Plan 74yo female with HTN, HLP presenting with unwitnessed fall, unknown down time. she was found to has bradycardia with HR in the 40s, started on ceftriaxone. also concern for cognitive impairment. 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 Started Rocephin 12/24, continue. Echocardiogram: EF >70%; borderline dilated RV; mild LA dilation; mild aortic regurgitation; mild pulm HTN; sinus rhythm w/ A-V dissociation, Rate in low 40s bpm Cardiology consulted --> recommending Rocephin for Lyme Carditis & bed rest. Pacer pads in place but does not require temporary pacing at this time. Daily EKGs' Atropine as needed for sustained or symptomatic bradycardia. Monitor and replace potassium calcium and mag - normal today Bradycardia has not yet improved (still in the 50s) Discussed with Dr. Charles, continue current treatment. Also unclear what her baseline actually is #Hypertension Has been significantly hypertensive thus far Continue Lisinopril 40mg po daily Continue to monitor pressures closely, cardio recommending to not aggressively treat bp secondary to bradycardia. #possible cognitive impairment, context of alcoholism -empirically replace thiamine with 500 mg IV q8h x 8 doses then change to oral -check B12 #Fall - unwitnessed fall. Patient has had gait instability in the past and has completed several sessions of PT/OT. She denies falling frequently of late. 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 Fall precautions Tylenol prn for pain inflammatory mastoiditis #Alcohol intoxication, alcohol use disorder Alc level 219 on admission Reports daily alcohol use w/ 3-4 beers daily AWSS + Ativan prn protocol - no evidence of withdrawal thus far Continue Thiamine & Folic acid supplements daily. #Hyperlipidemia- Crestor 40mg po daily #Onychogryphosis - referral to podiatry on discharge. Reviewed CBC - W7, Hg12, Plt 286 Reviewed BMP - normal. K 4.6, Cr 0.75, mag 2.0 DVT prophylaxis: SCD's Code: Full Admission and Anticipated Discharge Date Admission Date: December 23, 2024 Subjective her HR stilll in the low 50s, need PT clearance she's stated she's has a sister but does not has the contact information She denies chest pain, shortness of breath, palpitations, edema, syncope, near syncope. Physical Exam Physical Exam: VITALS: Reviewed. WEIGHT/BMI reviewed. GEN: chronically ill appearing -Head: NC/AT; -Eyes: PERRL, EOMI. No discharge or redn ess; NECK: Supple, with no masses. CV: slow HR, no murur LUNGS: CTAB, no w/r/c. ABD: Soft, NT/ND, NBS, no masses or organomegaly. : N/A SKIN: Warm, well perfused. No skin rashes or abnormal lesions. MSK: No deformities, Normal gait. EXT: No clubbing, cyanosis, or edema. Results & Data Results & Data Vital Signs (Past 12 Hours) Vital Signs Temp Pulse Pulse Resp BP Pulse Ox O2 Del Method 12/28/24 11:46 37.1 C 46 L 20 163/67 H 98 Room Air 12/28/24 09:59 Room Air 12/28/24 08:05 36.9 C 52 L 18 125/63 97 Room Air 12/28/24 07:25 41 L 12/28/24 04:08 37.0 C 44 L 16 130/69 96 Room Air Laboratory Results Laboratory Results - last 72 hr 12/26/24 12/27/24 12/28/24 06:00 05:59 06:04 WBC 7.15 7.02 RBC 3.65 L 3.91 L Hgb 11.0 L 12.0 Hct 33.4 L 36.1 L MCV 91.5 92.3 MCH 30.1 30.7 MCHC 32.9 33.2 RDW Std Deviation 45.4 45.5 RDW Coeff of Kurt 13.4 13.4 Plt Count 251 286 MPV 9.7 10.0 Sodium 134 L 137 Potassium 3.9 4.6 Chloride 99 101 Carbon Dioxide 29 30 Anion Gap 6 6 BUN 10 11 Creatinine 0.72 0.75 Est Cr Clr Drug Dosing 66.4 63.8 eGFR 88.78 84.54 BUN/Creatinine Ratio 13.9 14.7 Glucose 96 92 Calcium 8.7 9.0 Magnesium 1.9 2.0 Vitamin B12 298 Medications Administered Current Inpatient Medications Acetaminophen (Acetaminophen 500 Mg Tab) 1,000 mg PO TID PRN PRN Reason: pain or fever Stop: 01/22/25 23:03 Last Admin: 12/27/24 21:40 Dose: 1,000 mg Atropine Sulfate (Atropine Sulfate 0.1 Mg/Ml 10ml Syr) 0.5 mg IV UD PRN PRN Reason: bradycardia Folic Acid (Folic Acid 1 Mg Tab) 1 mg PO QAM [facility] Stop: 01/25/25 08:59 Last Admin: 12/28/24 08:48 Dose: 1 mg Ceftriaxone Sodium (Rocephin) 2,000 mg in 50 mls @ 100 mls/hr IV Q24H [facility] Stop: 01/03/25 10:59 Last Infusion: 12/28/24 11:40 Dose: Infused Thiamine HCl 500 mg/ Sodium (Chloride) 55 mls @ 210 mls/hr IV Q8H [facility] Stop: 12/29/24 23:16 Last Infusion: 12/28/24 06:50 Dose: Infused Lisinopril (Lisinopril 40 Mg Tab) 40 mg PO DAILY [facility] Stop: 01/23/25 08:59 Last Admin: 12/28/24 08:48 Dose: 40 mg Lorazepam (Lorazepam 2 Mg/1 Ml Vial) 1 mg IV ONE PRN; Protocol PRN Reason: EtoH Withdrawal AWSS 6-10 Ondansetron HCl (Ondansetron Inj 2 Mg/Ml 2 Ml Vial) 4 mg IV Q6H PRN PRN Reason: Nausea And Vomiting Stop: 01/22/25 23:03 Rosuvastatin Calcium (Rosuvastatin Calcium 20 Mg Tab) 40 mg PO DAILY [facility] Stop: 01/23/25 08:59 Last Admin: 12/28/24 08:48 Dose: 40 mg Thiamine HCl (Thiamine Hcl 100 Mg Tab) 100 mg PO QAM [facility] Stop: 01/25/25 08:59 Last Admin: 12/27/24 08:19 Dose: 100 mg PG Care Time/CCT Total # of Minutes Spent Total Time Spent with Patient: Total time spent is greater than 50% in coordination of care (as documented) at patient's floor/unit and/or counseling patient: Coding Level of Care Code 69124 SUB INP/OBS CARE 2/35MIN Diagnoses Lyme carditis A69.29 Bradycardia R00.1 HTN (hypertension) I10 Lyme disease A69.20 Time Spent (min) 35
--- NOTE | 2024-12-28 14:42 | Cardiology Progress Note ---
Date of Service December 28, 2024 Assessment & Plan (1) Complete heart block: (2) Lyme carditis: (3) Tobacco abuse: (4) Junctional bradycardia: (5) HTN (hypertension): Plan ASSESSMENT/PLAN: 1. Complete heart block: Sinus with A-V dissociation noted on ECG and telemetry. May be due to Lyme carditis, but no significant improvement thus far. Currently receiving ceftriaxone (started 12/24/2024). Continue telemetry. Daily ECG. Bedrest. Pacer pads to be in place if emergent pacing is necessary. Temporary pacemaker is not currently necessary. If heart block does not resolve with treatment for Lyme, pacemaker placement may be needed. Avoid medications that may slow the heart rate. Continue to monitor. She remains asymptomatic. Will place electrophysiology referral to Dr. Burrell who plans on seeing her tomorrow. N.p.o. after midnight for possible pacemaker tomorrow. 2. Hypertension: Blood pressure mildly elevated. Can continue home regimen. Would not aggressively treat blood pressure in the setting of significant bradycardia. 3. Lyme carditis: Treatment as per primary hospitalist service. 4. Tobacco abuse: Stop smoking. 5. Disposition: Cardiology will continue to follow, but electrophysiology will continue her care tomorrow. Patient care communicated with Dr. Wheeler of the primary hospitalist service. Admission and Anticipated Discharge Date Admission Date: December 23, 2024 Subjective Patient seen earlier today. She denies chest pain, shortness of breath, syncope, palpitations, near syncope. She is agreeable to undergo pacemaker placement if needed. She was unaccompanied. Physical Exam Physical Exam: Gen.: No acute distress. Alert. HEENT: Anicteric sclera. Neck: No JVD. Cardiac: Regular. Bradycardic. Normal S1-S2. 2/6 early peaking systolic ejection murmur. Pulmonary: Clear to auscultation bilaterally without wheezes, rales, or rhonchi. Abdomen: Soft, nontender, nondistended, with normoactive bowel sounds. No bruits noted. Extremities: 2+ radial pulses bilaterally. 2+ posterior tibialis pulses sahil aterally. No edema or cyanosis. Results & Data Vital Signs (Past 12 Hours) Vital Signs Temp Pulse Pulse Resp BP Pulse Ox O2 Del Method 12/28/24 14:24 48 L 12/28/24 11:46 37.1 C 46 L 20 163/67 H 98 Room Air 12/28/24 09:59 Room Air 12/28/24 08:05 36.9 C 52 L 18 125/63 97 Room Air 12/28/24 07:25 41 L 12/28/24 04:08 37.0 C 44 L 16 130/69 96 Room Air Laboratory Results Laboratory Results - last 24 hr 12/28/24 06:04 Vitamin B12 298 Diagnostic Findings Telemetry personally reviewed: Sinus rhythm with complete heart block and junctional rhythm. Heart rate 40s to 50 BPM. Medications Administered Current Inpatient Medications Acetaminophen (Acetaminophen 500 Mg Tab) 1,000 mg PO TID PRN PRN Reason: pain or fever Stop: 01/22/25 23:03 Last Admin: 12/27/24 21:40 Dose: 1,000 mg Atropine Sulfate (Atropine Sulfate 0.1 Mg/Ml 10ml Syr) 0.5 mg IV UD PRN PRN Reason: bradycardia Folic Acid (Folic Acid 1 Mg Tab) 1 mg PO QAM [facility] Stop: 01/25/25 08:59 Last Admin: 12/28/24 08:48 Dose: 1 mg Ceftriaxone Sodium (Rocephin) 2,000 mg in 50 mls @ 100 mls/hr IV Q24H [facility] Stop: 01/03/25 10:59 Last Infusion: 12/28/24 11:40 Dose: Infused Thiamine HCl 500 mg/ Sodium (Chloride) 55 mls @ 210 mls/hr IV Q8H [facility] Stop: 12/29/24 23:16 Last Admin: 12/28/24 14:11 Dose: 210 mls/hr Lisinopril (Lisinopril 40 Mg Tab) 40 mg PO DAILY [facility] Stop: 01/23/25 08:59 Last Admin: 12/28/24 08:48 Dose: 40 mg Lorazepam (Lorazepam 2 Mg/1 Ml Vial) 1 mg IV ONE PRN; Protocol PRN Reason: EtoH Withdrawal AWSS 6-10 Ondansetron HCl (Ondansetron Inj 2 Mg/Ml 2 Ml Vial) 4 mg IV Q6H PRN PRN Reason: Nausea And Vomiting Stop: 01/22/25 23:03 Rosuvastatin Calcium (Rosuvastatin Calcium 20 Mg Tab) 40 mg PO DAILY [facility] Stop: 01/23/25 08:59 Last Admin: 12/28/24 08:48 Dose: 40 mg Thiamine HCl (Thiamine Hcl 100 Mg Tab) 100 mg PO QAM [facility] Stop: 01/25/25 08:59 Last Admin: 12/27/24 08:19 Dose: 100 mg PG Care Time/CCT Total # of Minutes Spent Total Time Spent with Patient: Total time spent is greater than 50% in coordination of care (as documented) at patient's floor/unit and/or counseling patient: Coding Level of Care Code 63187 SUB INP/OBS CARE 3/50MIN Diagnoses Complete heart block I44.2 Lyme carditis A69.29 Tobacco abuse Z72.0 Junctional bradycardia R00.1 HTN (hypertension) I10
[2024-12-29 07:47] LABS: Thyroid Stimulating Hormone 4.25 uIu/ml (0.300-4.500)
[2024-12-29 08:42] LABS: Anion Gap 10.0 (3-11); Blood Urea Nitrogen 15.0 mg/dl (6-23); Calcium 9.2 mg/dl (8.6-10.3); Carbon Dioxide 25.0 mmol/L (21-32); Chloride 100.0 mmol/L (98-107); Creatinine Clr Calc Pharmacy 53.7 ml/min; Glucose 89.0 mg/dl (70-99(Fasting)); Magnesium 1.9 mg/dl (1.7-2.4); Potassium 4.2 mmol/L (3.5-5.1); Sodium 135.0 mmol/L (136-145)
--- NOTE | 2024-12-29 11:08 | Pre Anesthesia Assessment ---
Date of Service December 29, 2024 Pre Sedation Assessment Vital Signs Temp Pulse Pulse Resp BP BP Pulse Ox 12/29/24 10:57 36.9 C 43 L 14 173/69 H 99 12/29/24 09:42 41 L 12/29/24 08:13 12/29/24 07:26 36.6 C 41 L 17 158/65 H 97 12/29/24 03:09 36.9 C 40 L 18 131/53 L 99 12/29/24 01:01 164/57 H 12/28/24 22:38 36.8 C 43 L 18 178/71 H 99 12/28/24 21:46 43 L 12/28/24 19:24 36.8 C 46 L 18 166/66 H 97 12/28/24 16:21 36.9 C 45 L 18 150/65 H 98 12/28/24 14:24 48 L 12/28/24 11:46 37.1 C 46 L 20 163/67 H 98 O2 Del Method 12/29/24 10:57 Room Air 12/29/24 09:42 12/29/24 08:13 Room Air 12/29/24 07:26 Room Air 12/29/24 03:09 Room Air 12/29/24 01:01 12/28/24 22:38 Room Air 12/28/24 21:46 12/28/24 19:24 Room Air 12/28/24 16:21 Room Air 12/28/24 14:24 12/28/24 11:46 Room Air Cardiovascular + bradycardic Respiratory + respiratory effort normal Pre-Sedation Airway Assessment Smoking Status: Current every day smoker Hx Sleep Apnea: No Hx Difficult Intubation: No Short, Thick Neck: No Thyromental Distance: > or= 3.5 Finger Breadths Oral Cavity: + Dentures Mallampati Class: IV ASA: ASA3 NPO Status Date of Last Intake of Fluids: 12/28/24 Time of Last Intake of Fluids: 21:00 Date of Last Intake of Solid Food: 12/28/24 Time of Last Intake of Solid Foods: 21:00 Procedure Planning Contraindications for Sedation: none Current Medications Reviewed: Yes Notes The planned sedation has been discussed with the patient. Informed Consent was obtained. I have identified the patient, determined the appropriateness of sedation and have assessed the patient immediately prior to the procedure. All medicine(s) and interventions are by my order.
--- NOTE | 2024-12-29 11:08 | Cardiology Consultation ---
Date of Consultation December 29, 2024 Assessment & Plan (1) Complete heart block: (2) Lyme carditis: (3) Tobacco abuse: (4) Junctional bradycardia: (5) HTN (hypertension): Plan ASSESSMENT/PLAN: 1. Complete heart block: She continues to have complete heart block. No old EKGs available for review. Is curious that she has a narrow complex QRS but clear high degree AV block. Whether this accounted for her episode of syncope is also unclear, but there is a likely association. While she does have positive Lyme titers, she does not have other obvious sequelae of Lyme disease. The been no rash or joint pains. She spends most of her time indoors and appears less likely to have been bitten by a tick than most other people. Given her advanced age it seems more likely at this point that her conduction disease is unrelated to Lyme carditis. I suspect we would have seen some improvement in conduction over a week with intravenous ceftriaxone. I did have a discussion with the patient regarding the current conduction issue. We discussed options for treatment to include continued monitoring in the hopes that prolonged antibiotic administration resolves the heart block or implantation of a permanent pacemaker under the assumption that this is unrelated to Lyme disease. She is in favor of proceeding with pacemaker implantation which we will do later today. History of Present Illness Reason for Consultation: Complete heart block Requesting Physician: Araceli Attending Physician: Carole Wheeler DO History of Present Illness The patient is a 74-year-old woman without a known history of cardiac disease who presents to the hospital after a fall. The fall appeared to be related to a syncopal episode. The patient did suffer trauma to her face. She does remember walking at the time and then waking up on the ground. She did not report any specific prodrome associated with the episode. She had not been having symptoms of dizziness or lightheadedness. Minimal exertional symptoms. She has not been aware of any palpitations recently. Cannot recall any additional episodes of syncope. Initial evaluation revealed bradycardia associated with complete heart block. Serologic testing also revealed evidence of Lyme disease. She was treated for acute Lyme carditis. However, after 7 days of intravenous antibiotic therapy there is been no change in her conduction. Currently the patient is feeling well. She has been restricted to bed and has not done any ambulation. She is currently denying any dizziness, lightheadedness or palpitation. Allergies Allergy/AdvReac Type Severity Reaction Status Date / Time No Known Allergies Allergy Verified 12/23/24 18:34 Home Medications Medication Instructions Recorded Confirmed Type acetaminophen 325 mg tablet 650 mg PO DIRECTED PRN Pain 06/13/21 12/23/24 History (Tylenol) lisinopril 40 mg tablet 40 mg PO DAILY 90 days #90 tabs 12/29/23 12/23/24 Rx mecobalamin (vitamin B12) 1,000 1,000 mcg sublingual DAILY 12/29/23 12/23/24 History mcg disintegrating tablet,sublingual multivitamin 1 tab PO DAILY 12/29/23 12/23/24 History rosuvastatin 40 mg tablet (Crestor) 40 mg PO DAILY #90 tabs 05/19/24 12/23/24 Rx alendronate 70 mg tablet (Fosamax) 70 mg PO .q7days 3 months #12 tabs 08/05/24 12/23/24 Rx Patient History Medical History Migraines Anxiety and depression Cyst of ovary, right Teeth missing due to periodontal disease HTN (hypertension) No pertinent family history Surgical History History of removal of ovarian cyst Hx of appendectomy No pertinent past surgical history Family History Mother Anxiety Depression Diabetes Hypertension Father Prostate cancer Social History Smoking Status: Current every day smoker Tobacco Type: Cigarettes Age Started Using Tobacco: 20; packs per day: 0.75; Cigarettes Per Day: 3/4 pack; Second Hand Exposure: No; Do You Dip or Chew Tobacco: No; Tobacco Cessation Education Requested by Patient: No Hx Alcohol Use: Yes Alcohol type: beer Hx Substance Use: No Preferred Language: Spanish Communication Ability: Effective Game Programer Required: No Beliefs That Will Affect Care: None marital status: Single Current Living Situation: Alone Current Living Situation Comment: apartment current occupational status: retired Other Information That Helps Us Care for You: No Feels Safe at Home: Yes Childhood Exposure to Second-Hand Smoke: Yes Diet: regular caffeine: Yes Dental Care, Regularly: No Physical Activity Frequency: Daily Seatbelt Use: always Sunscreen Use: No Assistive Devices: Walker Review of Systems Review of Systems: Per HPI. Physical Exam Physical Exam: She is alert and oriented x3. Mood affect appear normal. She answered all questions appropriately. HEENT: Sclerae are anicteric. Pupils are equal and reactive to light and accommodation. Extraocular movements were intact. Small laceration of the lower lip. Neuro: Cranial nerves intact Lungs: Lungs are clear to auscultation bilaterally. There are no rales wheezes or rhonchi. She has normal respiratory effort without use of accessory muscles. There is normal pulmonary excursion. Cardiac: The rhythm was regular but slow. Extremities: Patient has bilateral radial pulses that are equal in intensity. There is no evidence cyanosis or clubbing. There was no evidence of significant peripheral edema bilaterally. Skin: There are no rashes noted on examination today. Results & Data Vital Signs (Past 12 Hours) Vital Signs Temp Pulse Pulse Resp BP BP Pulse Ox 12/29/24 10:57 36.9 C 43 L 14 173/69 H 99 12/29/24 09:42 41 L 12/29/24 08:13 12/29/24 07:26 36.6 C 41 L 17 158/65 H 97 12/29/24 03:09 36.9 C 40 L 18 131/53 L 99 12/29/24 01:01 164/57 H O2 Del Method 12/29/24 10:57 Room Air 12/29/24 09:42 12/29/24 08:13 Room Air 12/29/24 07:26 Room Air 12/29/24 03:09 Room Air 12/29/24 01:01 Laboratory Results Abnormal Lab Results 12/29/24 06:29 Sodium 135 L Potassium 4.2 Chloride 100 Carbon Dioxide 25 Anion Gap 10 BUN 15 Creatinine 0.89 Est Cr Clr Drug Dosing 53.7 eGFR 68.84 BUN/Creatinine Ratio 16.9 Glucose 89 Calcium 9.2 Magnesium 1.9 TSH 4.250 PG Care Time/CCT Total # of Minutes Spent Total Time Spent with Patient: Total time spent is greater than 50% in coordination of care (as documented) at patient's floor/unit and/or counseling patient: Coding Level of Care Code 87076 INT INP/OBS CARE 3/75MIN Diagnoses Complete heart block I44.2 Lyme carditis A69.29 Tobacco abuse Z72.0 Junctional bradycardia R00.1 HTN (hypertension) I10
[2024-12-29] MEDS: BUPIVACAINE 0.25% PF 30 ML VIAL ONE ×2 (12:34→17:31)
[2024-12-29] MEDS: VANCOMYCIN HCL 1000MG/20ML VIAL ONE ×2 (12:34→17:31)
[2024-12-29] MEDS: LIDOCAINE 1% LOCAL 20 ML VIAL ONE ×2 (12:34→17:31)
[2024-12-29] MEDS: MIDAZOLAM HCL 5 MG/ML 1 ML VIAL ONE ×2 (12:35→16:32)
[2024-12-29] MEDS: WATER, STERILE FOR INJ 10 ML VIAL ONE ×2 (12:35→17:32)
[2024-12-29] MEDS: ceFAZolin 330 MG/ML 1 GM VIAL ONE ×2 (12:35→16:32)
[2024-12-29] MEDS: MIDAZOLAM HCL 1 MG/ML 2ML VIAL ONE (12:38)
--- NOTE | 2024-12-29 12:43 | Electrophysiology Report ---
Date of Service December 29, 2024 Electrophysiology Procedure Electrophysiology Procedure Report Procedure performed: Implantation of dual-chamber permanent pacemaker with left bundle pacing lead Staff grease man: Femi Burrell MD Indication: The patient is a 74-year-old woman who presented with an episode of syncope she was noted to be in complete heart block. While serology studies suggest that she had Lyme disease, after 7 days of systemic antibiotics there was no change in conduction. After discussion with the patient we elected to proceed with permanent pacemaker implantation due to symptomatic nonreversible AV node dysfunction. A dual-chamber device is selected as she is currently in sinus rhythm and wished to maintain AV synchrony. Procedure in detail: The patient was informed of the risks benefits and alternatives to the intended procedure and she wished to proceed. She was taken to the electrophysiology suite in a fasting state. A preoperative antibiotic had been administered. The patient was monitored electrocardiographically throughout today's procedure and conscious sedation was administered per protocol. The left upper pectoral area was prepped and draped in usual sterile fashion. This area was anesthetized using subcutaneous administration of a xylocaine solution. An incision was made at this site and carried down to the prepectoralis fascia using sharp dissection. Electrocautery was also employed for dissection as well as for hemostasis. A device pocket was fashioned tissues above the pectoralis muscle. Subsequent to this maneuver the left axillary vein was accessed using modified Seldinger technique. A sheath was placed over guidewire and used to facilitate passage of a guiding catheter for mapping of the interventricular septum. Once an appropriate location was identified a pacing lead was advanced into the interventricular septum until the appropriate electrophysiologic characteristics were obtained. At this point the guiding catheter was removed. The proximal portion of the lead was then sutured the prepectoralis fascia using nonabsorbable suture. A sheath was placed over the remaining guidewire and used to facilitate passage of a pacing lead to the right atrium under fluoroscopic guidance. Adequate sensing and threshold parameters were obtained prior to active fixation of this lead to the endocardial surface. The proximal portion of the leads were then sutured the prepectoral fascia using nonabsorbable suture. The device pocket was irrigated with antibiotic solution. The leads were then attached to the device. The device and leads were then placed in the pocket and pocket was closed in 3 layers of absorbable suture. Steri-Strips and sterile dressing were applied. The device was tested noninvasively prior to conclusion the procedure. The patient tolerated procedure well there no immediate complications. Equipment used: New pulse generator: [employer]er [employer]. Model number: [id number] serial number [id number] Right atrial lead: Trail Maintenance [employer]er [employer]. Model number: [id number] serial number [id number] Right ventricular lead: [employer] Maintenance [employer]er [employer]. Model number: [id number] serial number [id number] Measured data: Right atrial lead: P waves measured 4.9 mV. Pacing threshold was 1.5 V at 0.4 ms with a pacing impedance of 608 ohms Right ventricular lead: R waves measure 5.5 mV. Pacing threshold was 0.75 V at 0.4 ms with a pacing impedance of 608 ohms Impression: Successful implantation of dual-chamber permanent pacemaker with left bundle pacing lead [facility] Electrophysiology codes Pacing Procedure 1: Pacin Insert/Replace Pacer A & V PG Moderate Sedation Codes Moderate Sedation Codes Procedure 1: Sedation/Anesthesia: 79186 Mod Sedation by the same physician;Init15 Min Child Age 5 & Up Procedure 2: Sedation/Anesthesia: 80069 Mod Sedation by the same physician; Ea [id number] Minutes
--- NOTE | 2024-12-29 12:44 | Post Anesthesia Assessment ---
Date of Service December 29, 2024 Post Sedation Assessment Vital Signs Temp Pulse Pulse Resp BP BP Pulse Ox 12/29/24 11:13 36.7 C 42 L 20 154/52 H 98 12/29/24 10:57 36.9 C 43 L 14 173/69 H 99 12/29/24 09:42 41 L 12/29/24 08:13 12/29/24 07:26 36.6 C 41 L 17 158/65 H 97 12/29/24 03:09 36.9 C 40 L 18 131/53 L 99 12/29/24 01:01 164/57 H 12/28/24 22:38 36.8 C 43 L 18 178/71 H 99 12/28/24 21:46 43 L 12/28/24 19:24 36.8 C 46 L 18 166/66 H 97 12/28/24 16:21 36.9 C 45 L 18 150/65 H 98 12/28/24 14:24 48 L O2 Del Method 12/29/24 11:13 Room Air 12/29/24 10:57 Room Air 12/29/24 09:42 12/29/24 08:13 Room Air 12/29/24 07:26 Room Air 12/29/24 03:09 Room Air 12/29/24 01:01 12/28/24 22:38 Room Air 12/28/24 21:46 12/28/24 19:24 Room Air 12/28/24 16:21 Room Air 12/28/24 14:24 Recovery Score Activity: Moves 4 extremities Respiration: Deep Breath/Cough Circulation: +/-50% PreAnes Value Consciousness: Arouseable (by name) Oxygen Saturation: O2 needed for >90% Discharge Sedation Level of Care: Fast Track Phase II Post Sedation Plan On clinical assessment, the patient appears to have tolerated the sedation without complications. Patient is recovering as anticipated. Patient will continue to be monitored by nursing and may be discharged when sedation discharge criteria are met per below protocol. Upon Completions of procedure up to 15 minutes continue every 5 minute vital signs and the P.A.R. score; then discharge to a Phase I or Fast Track to Phase II per the following guidelines: * Discharge Patient to appropriate Phase II area if PAR is 8 or greater or return to pre- procedure baseline. The post - procedure orders will be as directed. * If PAR score is less than 8 or not return to pre-procedure baseline then patient will follow Phase I monitoring till PAR is reached for Phase II. The Phase I may be done in procedure room or may call to secure a Phase I area. * If naloxone or flumazenil are used for reversal, hold in Phase I for continued monitoring from when last reversal dose was given for a minimum of 60 minutes or longer pending the nurse and/or physician discretion of patient condition before discharge to Phase II. Please call the Sedation Physician to re-evaluate and complete post-note for discharge to Phase II area. Do NOT discharge from procedure sedation or Phase 1 until post- sedation evaluation note is complete by procedure /sedation MD Sedation Discharge Instructions to be given to the patient at discharge to home.
[2024-12-29] MEDS ORDERED: Nursing to Pharmacy Communication SCH (13:00)
--- NOTE | 2024-12-29 13:59 | Hospitalist Progress Note ---
Date of Service December 29, 2024 Assessment & Plan (1) Lyme carditis: (2) Bradycardia: (3) HTN (hypertension): (4) Lyme disease: Plan 74yo female with HTN, HLP presenting with unwitnessed fall, unknown down time. noted has bradycardia with HR in the 40s, started on ceftriaxone. also concern for cognitive impairment. on 12/29/2024, planning for pacemaker by dr. Burrell. #Bradycardia/Lyme Carditis c/w ceftriaxone, suspect she's need detention antibiotics f/u on TSH HR between 40-50, not symptomatic at least in bedrest no syncopal events EKG w/ concern for A-V dissociation. Started Rocephin 12/24, continue. Echocardiogram: EF >70%; borderline dilated RV; mild LA dilation; mild aortic regurgitation; mild pulm HTN; sinus rhythm w/ A-V dissociation, Rate in low 40s bpm Cardiology consulted --> recommending Rocephin for Lyme Carditis & bed rest. Pac er pads in place but does not require temporary pacing at this time. Daily EKGs' Atropine as needed for sustained or symptomatic bradycardia. Monitor and replace potassium calcium and mag - normal today Bradycardia has not yet improved (still in the 50s) Discussed with Dr. Charles, continue current treatment. Also unclear what her baseline actually is #Hypertension Has been significantly hypertensive thus far Continue Lisinopril 40mg po daily Continue to monitor pressures closely, cardio recommending to not aggressively treat bp secondary to bradycardia. #possible cognitive impairment, context of alcoholism -empirically replace thiamine with 500 mg IV q8h x 8 doses then change to oral -check B12 #Fall - unwitnessed fall. Patient has had gait instability in the past and has completed several sessions of PT/OT. She denies falling frequently of late. 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 Fall precautions Tylenol prn for pain inflammatory mastoiditis #Alcohol intoxication, alcohol use disorder Alc level 219 on admission Reports daily alcohol use w/ 3-4 beers daily AWSS + Ativan prn protocol - no evidence of withdrawal thus far Continue Thiamine & Folic acid supplements daily. #Hyperlipidemia- Crestor 40mg po daily #Onychogryphosis - referral to podiatry on discharge. Reviewed CBC - W7, Hg12, Plt 286 Reviewed BMP - normal. K 4.6, Cr 0.75, mag 2.0 DVT prophylaxis: SCD's Code: Full Admission and Anticipated Discharge Date Admission Date: December 23, 2024 Subjective Patient seen earlier today. She denies chest pain, shortness of breath, syncope, palpitations, near syncope. plan for pacemaker today spoke with Dr. Burrell cardiology called her friend, Mrs Barrios, but went to voicemail trying to charge her phone Physical Exam Physical Exam: VITALS: Reviewed. WEIGHT/BMI reviewed. GEN: Healthy appearing, well-developed, NAD. -Head: NC/AT; -Eyes: PERRL, EOMI. No discharge or redn ess; -Mouth and throat: MMM. Normal gums, muc bettye, palate,. Good dentition. NECK: Supple, with no masses. CV: bradycardia; normal s1; s2; LUNGS: CTAB, no w/r/c. ABD: Soft, NT/ND, NBS, no masses or organomegaly. : N/A SKIN: Warm, well perfused. No skin rashes or abnormal lesions. MSK: No deformities, Normal gait. EXT: No clubbing, cyanosis, or edema. NEURO: Ambulating with no limitations. Normal muscle strength and tone. No focal deficits. Results & Data Results & Data Vital Signs (Past 12 Hours) Vital Signs Temp Pulse Pulse Pulse Resp BP BP 12/29/24 13:45 36.4 C L 84 16 173/62 H 12/29/24 13:15 77 18 145/84 H 12/29/24 13:00 84 18 127/80 12/29/24 11:13 36.7 C 42 L 20 154/52 H 12/29/24 10:57 36.9 C 43 L 14 173/69 H 12/29/24 09:42 41 L 12/29/24 08:13 12/29/24 07:26 36.6 C 41 L 17 158/65 H 12/29/24 03:09 36.9 C 40 L 18 131/53 L Pulse Ox O2 Del Method 12/29/24 13:45 99 Room Air 12/29/24 13:15 98 Room Air 12/29/24 13:00 98 Room Air 12/29/24 11:13 98 Room Air 12/29/24 10:57 99 Room Air 12/29/24 09:42 12/29/24 08:13 Room Air 12/29/24 07:26 97 Room Air 12/29/24 03:09 99 Room Air PG Care Time/CCT Total # of Minutes Spent Total Time Spent with Patient: Total time spent is greater than 50% in coordination of care (as documented) at patient's floor/unit and/or counseling patient: Coding Level of Care Code 57052 SUB INP/OBS CARE 2/35MIN Diagnoses Lyme carditis A69.29 Bradycardia R00.1 HTN (hypertension) I10 Lyme disease A69.20 Time Spent (min) 35
--- NOTE | 2024-12-29 15:39 | Pre Anesthesia Assessment ---
Date of Service December 29, 2024 Pre Sedation Assessment Vital Signs Temp Pulse Pulse Pulse Resp BP BP 12/29/24 15:17 36.9 C 86 14 115/63 12/29/24 14:15 36.5 C 110 H 18 122/75 12/29/24 13:45 36.4 C L 84 16 173/62 H 12/29/24 13:15 77 18 145/84 H 12/29/24 13:00 84 18 127/80 12/29/24 11:13 36.7 C 42 L 20 154/52 H 12/29/24 10:57 36.9 C 43 L 14 173/69 H 12/29/24 09:42 41 L 12/29/24 08:13 12/29/24 07:26 36.6 C 41 L 17 158/65 H 12/29/24 03:09 36.9 C 40 L 18 131/53 L 12/29/24 01:01 164/57 H 12/28/24 22:38 36.8 C 43 L 18 178/71 H 12/28/24 21:46 43 L 12/28/24 19:24 36.8 C 46 L 18 166/66 H 12/28/24 16:21 36.9 C 45 L 18 150/65 H Pulse Ox O2 Del Method 12/29/24 15:17 93 Room Air 12/29/24 14:15 98 Room Air 12/29/24 13:45 99 Room Air 12/29/24 13:15 98 Room Air 12/29/24 13:00 98 Room Air 12/29/24 11:13 98 Room Air 12/29/24 10:57 99 Room Air 12/29/24 09:42 12/29/24 08:13 Room Air 12/29/24 07:26 97 Room Air 12/29/24 03:09 99 Room Air 12/29/24 01:01 12/28/24 22:38 99 Room Air 12/28/24 21:46 12/28/24 19:24 97 Room Air 12/28/24 16:21 98 Room Air Cardiovascular + regular rate and + regular rhythm Respiratory + respiratory effort normal Pre-Sedation Airway Assessment Smoking Status: Current every day smoker Hx Sleep Apnea: No Hx Difficult Intubation: No Short, Thick Neck: No Thyromental Distance: < 3.5 Finger Breadths Oral Cavity: + Dentures Mallampati Class: IV ASA: ASA4 NPO Status Date of Last Intake of Fluids: 12/29/24 Time of Last Intake of Fluids: 14:00 Date of Last Intake of Solid Food: 12/29/24 Time of Last Intake of Solid Foods: 14:00 Procedure Planning Contraindications for Sedation: none Current Medications Reviewed: Yes Notes The planned sedation has been discussed with the patient. Informed Consent was obtained. I have identified the patient, determined the appropriateness of sedation and have assessed the patient immediately prior to the procedure. All medicine(s) and interventions are by my order.
[2024-12-29] MEDS: diphenhydrAMINE 50 MG/ML VIAL ONE (16:32)
--- NOTE | 2024-12-29 16:34 | Electrophysiology Report ---
Date of Service December 29, 2024 Electrophysiology Procedure Electrophysiology Procedure Report Procedure performed: Right ventricular lead revision Staff web art director: Femi Burrell MD Indication: Patient is a 74-year-old woman who had undergone implantation of a dual-chamber permanent pacemaker including a left bundle pacing lead. Shortly after the device implant she was noted to have noncapture of the ventricular lead in the unipolar setting. Impedance and sensing and also change. This appeared to involve a right ventricular micro lead dislodgment. As it affected the function of the device in she has complete heart block she was brought back urgently to the electrophysiology suite for lead revision. Procedure in detail: Patient was informed the risk benefits and alternatives to the intended procedure. She understood and wished to proceed. She was brought to the electrophysiology suite where the area over the previously planned device was prepped and draped in usual sterile fashion. Patient was monitored electrocardiography throughout today's procedure and conscious station was administered per protocol. The pocket incision was opened using sharp dissection. The previously implanted pacemaker and leads were removed from the pocket. The axillary vein was accessed using modified Seldinger technique under fluoroscopy. A sheath was placed over a guidewire at the site. This sheath was used to facilitate passage of a guiding catheter for mapping of the interventricular septum. The previously implanted left bundle pacing lead was subsequently removed. The small venotomy was closed using a pursestring silk suture. This lead was then advanced through the guiding catheter and into the interventricular septum. It was advanced until the appropriate electrical characteristics were obtained. Adequate sensing and threshold parameters were noted prior to removal of the guiding catheter. The proximal portion of the lead was then sutured to the prepectoralis fossa using nonabsorbable suture. The pocket was irrigated with an antibiotic solution. The leads were attached to the pulse generator. The pulse generator was then placed inside an antibiotic impregnated envelope and the leads and pulse generator were replaced into the device pocket. The pocket was subsequently closed with 3 layers of absorbable suture. Steri-Strips and sterile dressing were applied. The patient tolerated procedure well. There were no immediate complications. Measured data Right atrial lead: P waves 4.9 mV. Pacing threshold 1 V at 0.4 ms with a pacing impedance of 517 ohms Right ventricular lead: Bipolar R waves 2 mV, unipolar R waves 7.9 mV. Pacing threshold 0.5 V at 0.4 ms with a pacing impedance of 646 ohms bipolar, pacing threshold 0.75 V at 0.4 ms with a pacing impedance of 456 ohms unipolar Impression: Successful right ventricular lead revision for patient with dual-chamber permanent pacemaker [facility] Electrophysiology codes Pacing Procedure 1: Pacin Reposition Pacer/ICD electrode PG Moderate Sedation Codes Moderate Sedation Codes Procedure 1: Sedation/Anesthesia: 07466 Mod Sedation by the same physician;Init15 Min Child Age 5 & Up Procedure 2: Sedation/Anesthesia: 72862 Mod Sedation by the same physician; Ea [id number] Minutes
--- NOTE | 2024-12-29 16:35 | Post Anesthesia Assessment ---
Date of Service December 29, 2024 Post Sedation Assessment Vital Signs Temp Pulse Pulse Pulse Resp BP BP 12/29/24 15:17 36.9 C 86 14 115/63 12/29/24 14:15 36.5 C 110 H 18 122/75 12/29/24 13:45 36.4 C L 84 16 173/62 H 12/29/24 13:15 77 18 145/84 H 12/29/24 13:00 84 18 127/80 12/29/24 11:13 36.7 C 42 L 20 154/52 H 12/29/24 10:57 36.9 C 43 L 14 173/69 H 12/29/24 09:42 41 L 12/29/24 08:13 12/29/24 07:26 36.6 C 41 L 17 158/65 H 12/29/24 03:09 36.9 C 40 L 18 131/53 L 12/29/24 01:01 164/57 H 12/28/24 22:38 36.8 C 43 L 18 178/71 H 12/28/24 21:46 43 L 12/28/24 19:24 36.8 C 46 L 18 166/66 H Pulse Ox O2 Del Method 12/29/24 15:17 93 Room Air 12/29/24 14:15 98 Room Air 12/29/24 13:45 99 Room Air 12/29/24 13:15 98 Room Air 12/29/24 13:00 98 Room Air 12/29/24 11:13 98 Room Air 12/29/24 10:57 99 Room Air 12/29/24 09:42 12/29/24 08:13 Room Air 12/29/24 07:26 97 Room Air 12/29/24 03:09 99 Room Air 12/29/24 01:01 12/28/24 22:38 99 Room Air 12/28/24 21:46 12/28/24 19:24 97 Room Air Recovery Score Activity: Moves 4 extremities Respiration: Deep Breath/Cough Circulation: +/-20% PreAnes Value Consciousness: Fully Awake Oxygen Saturation: > 92% On Room Air Post Anesthesia Score: 10 Discharge Sedation Level of Care: Fast Track Phase II Post Sedation Plan On clinical assessment, the patient appears to have tolerated the sedation without complications. Patient is recovering as anticipated. Patient will continue to be monitored by nursing and may be discharged when sedation discharge criteria are met per below protocol. Upon Completions of procedure up to 15 minutes continue every 5 minute vital signs and the P.A.R. score; then discharge to a Phase I or Fast Track to Phase II per the following guidelines: * Discharge Patient to appropriate Phase II area if PAR is 8 or greater or return to pre- procedure baseline. The post - procedure orders will be as directed. * If PAR score is less than 8 or not return to pre-procedure baseline then patient will follow Phase I monitoring till PAR is reached for Phase II. The Phase I may be done in procedure room or may call to secure a Phase I area. * If naloxone or flumazenil are used for reversal, hold in Phase I for continued monitoring from when last reversal dose was given for a minimum of 60 minutes or longer pending the nurse and/or physician discretion of patient condition before discharge to Phase II. Please call the Sedation Physician to re-evaluate and complete post-note for discharge to Phase II area. Do NOT discharge from procedure sedation or Phase 1 until post- sedation evaluation note is complete by procedure /sedation MD Sedation Discharge Instructions to be given to the patient at discharge to home.
--- NOTE | 2024-12-30 07:30 | XRay Report ---
EXAM: XR chest 2V PA/lateral CLINICAL HISTORY: EXACT TIME ORDERED Evaluate for pneumothorax and l TECHNIQUE: An X-ray image of the chest is obtained in AP projection. 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 No evidence of consolidation, collapse, or focal opacities. No pulmonary nodules are identified. No evidence of pleural effusion or pleural thickening. Heart and Mediastinum: Heart size and shape are normal. No mediastinal widening or masses. No hilar or mediastinal lymphadenopathy. Bony Thorax: Bony thorax appears intact without fractures or deformities. Soft Tissues: Soft tissues overlying the chest wall are unremarkable. IMPRESSION: Normal chest X-ray. No acute cardiopulmonary abnormalities are identified. No other new interval abnormality since prior study. Electronically signed by Matt Barreto 12-30-2024 07:30 AM
--- NOTE | 2024-12-30 09:27 | Cardiology Progress Note ---
Date of Service December 30, 2024 Assessment & Plan (1) Complete heart block: (2) Lyme carditis: (3) Tobacco abuse: (4) Junctional bradycardia: (5) HTN (hypertension): Plan ASSESSMENT/PLAN: 1. Complete heart block: Based on the assumption that her heart block was not related to acute Lyme disease, she underwent implantation of dual-chamber permanent pacemaker yesterday. Still in complete heart block based on today's interrogation. However, normal function of her pacemaker at this point. No evident complications status post lead revision yesterday. From a heart standpoint she could conceivably be discharged. She should refrain from lifting the left arm above the shoulder behind the neck for 6 weeks. She should keep her wound dry and her Steri-Strips intact until we can arrange follow-up in our clinic next week. Admission and Anticipated Discharge Date Admission Date: December 23, 2024 Subjective This morning the patient complained of left shoulder discomfort. Minimal discomfort at the device implant site. Physical Exam Physical Exam: Alert. Oriented. Answered all questions appropriately Device implant site with some ecchymosis and devitalization, no significant erythema or tenderness. No significant hematoma. Results & Data Vital Signs (Past 12 Hours) Vital Signs Temp Pulse Pulse Resp BP BP Pulse Ox 12/30/24 07:50 36.6 C 68 20 127/74 97 12/30/24 03:37 36.8 C 71 16 118/69 97 12/29/24 22:46 37.1 C 89 16 117/71 98 12/29/24 22:37 84 12/29/24 22:00 145/85 H O2 Del Method 12/30/24 07:50 Room Air 12/30/24 03:37 Room Air 12/29/24 22:46 Room Air 12/29/24 22:37 12/29/24 22:00 Diagnostic Findings Chest x-ray demonstrated stable lead position without pneumothorax I performed a complete device interrogation which revealed normal function of both the atrial and ventricular leads. Ventricular lead was tested in both bipolar and unipolar configurations.
--- NOTE | 2024-12-30 13:10 | Hospitalist Progress Note ---
Date of Service December 30, 2024 Assessment & Plan (1) Lyme carditis: (2) Bradycardia: (3) HTN (hypertension): (4) Lyme disease: Plan 74yo female with HTN, HLP presenting with unwitnessed fall, unknown down time. noted has bradycardia with HR in the 40s, started on ceftriaxone. also concern for cognitive impairment. on 12/29/2024, planning for pacemaker by dr. Burrell. #Bradycardia/Lyme Carditis c/w ceftriaxone, suspect she's need correction antibiotics f/u on TSH s/p pacemaker on 12/29/2024 EKG w/ concern for A-V dissociation. Started Rocephin 12/24, continue. Echocardiogram: EF >70%; borderline dilated RV; mild LA dilation; mild aortic regurgitation; mild pulm HTN; sinus rhythm w/ A-V dissociation, Rate in low 40s bpm Bradycardia has not yet improved (still in the 50s) Discussed with Dr. Charles, continue current treatment. s/p pacemaker on 12/29/2024 deposition await PT and OT evaluation #Hypertension Has been significantly hypertensive thus far Continue Lisinopril 40mg po daily Continue to monitor pressures closely, cardio recommending to not aggressively treat bp secondary to bradycardia. #possible cognitive impairment, context of alcoholism -empirically replace thiamine with 500 mg IV q8h x 8 doses then change to oral -check B12 #Fall - unwitnessed fall. Patient has had gait instability in the past and has completed several sessions of PT/OT. She denies falling frequently of late. 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 Fall precautions Tylenol prn for pain inflammatory mastoiditis #Alcohol intoxication, alcohol use disorder Alc level 219 on admission Reports daily alcohol use w/ 3-4 beers daily AWSS + Ativan prn protocol - no evidence of withdrawal thus far Continue Thiamine & Folic acid supplements daily. #Hyperlipidemia- Crestor 40mg po daily #Onychogryphosis - referral to podiatry on discharge. Reviewed CBC - W7, Hg12, Plt 286 Reviewed BMP - normal. K 4.6, Cr 0.75, mag 2.0 DVT prophylaxis: SCD's Code: Full Admission and Anticipated Discharge Date Admission Date: December 23, 2024 Subjective pain around incision site await PT/OT eval no dizziness in addition, her sister is Felicia oneal however, her phone has no battery and she does not remember her phone number Physical Exam Physical Exam: VITALS: Reviewed. WEIGHT/BMI reviewed. GEN: Healthy appearing, well-developed, NAD. -Head: NC/AT; -Eyes: PERRL, EOMI. No discharge or redn ess; NECK: Supple, with no masses. CV: RRR, no m/r/g. LUNGS: CTAB, no w/r/c. ABD: Soft, NT/ND, NBS, no masses or organomegaly. : N/A SKIN: Warm, well perfused. No skin rashes or abnormal lesions. MSK: No deformities, Normal gait. EXT: No clubbing, cyanosis, or edema. NEURO: Ambulating with no limitations. Normal muscle strength and tone. No focal deficits. Results & Data Results & Data Vital Signs (Past 12 Hours) Vital Signs Temp Pulse Resp BP BP Pulse Ox O2 Del Method 12/30/24 11:20 36.4 C L 70 18 102/66 96 Room Air 12/30/24 07:50 36.6 C 68 20 127/74 97 Room Air 12/30/24 03:37 36.8 C 71 16 118/69 97 Room Air Laboratory Results Laboratory Results - last 72 hr 12/28/24 12/29/24 06:04 06:29 Sodium 135 L Potassium 4.2 Chloride 100 Carbon Dioxide 25 Anion Gap 10 BUN 15 Creatinine 0.89 Est Cr Clr Drug Dosing 53.7 eGFR 68.84 BUN/Creatinine Ratio 16.9 Glucose 89 Calcium 9.2 Magnesium 1.9 Vitamin B12 298 TSH 4.250 PG Care Time/CCT Total # of Minutes Spent Total Time Spent with Patient: Total time spent is greater than 50% in coordination of care (as documented) at patient's floor/unit and/or counseling patient: Coding Level of Care Code 18718 SUB INP/OBS CARE 2/35MIN Diagnoses Lyme carditis A69.29 Bradycardia R00.1 HTN (hypertension) I10 Lyme disease A69.20 Time Spent (min) 35
--- NOTE | 2024-12-30 22:36 | Electrocardiogram Report ---
Test Reason : Blood Pressure : */* mmHG Vent. Rate : 42 BPM Atrial Rate : 74 BPM P-R Int : * ms QRS Dur : 84 ms QT Int : 474 ms P-R-T Axes : 74 33 64 degrees QTcB Int : 395 ms Sinus rhythm with complete heart block and Junctional bradycardia Septal infarct (cited on or before 26-Dec-2024) Abnormal ECG When compared with ECG of 28-Dec-2024 06:16, No significant change was found Confirmed by Efren Charles ([id number]) on 12/30/2024 10:36:26 PM Referred By: REFERRED SELF Confirmed By: Efren Charles
--- NOTE | 2024-12-30 22:36 | Electrocardiogram Report ---
Test Reason : Blood Pressure : */* mmHG Vent. Rate : 43 BPM Atrial Rate : 63 BPM P-R Int : * ms QRS Dur : 76 ms QT Int : 472 ms P-R-T Axes : 78 46 60 degrees QTcB Int : 398 ms Sinus rhythm with complete heart block and Junctional bradycardia Septal infarct (cited on or before 26-Dec-2024) Abnormal ECG When compared with ECG of 27-Dec-2024 06:20, No significant change was found Confirmed by Efren Charles ([id number]) on 12/30/2024 10:35:29 PM Referred By: REFERRED SELF Confirmed By: Efren Charles
--- NOTE | 2024-12-30 22:37 | Electrocardiogram Report ---
Test Reason : Blood Pressure : */* mmHG Vent. Rate : 79 BPM Atrial Rate : 79 BPM P-R Int : 134 ms QRS Dur : 152 ms QT Int : 418 ms P-R-T Axes : 66 214 43 degrees QTcB Int : 479 ms Atrial-sensed ventricular-paced rhythm Abnormal ECG When compared with ECG of 29-Dec-2024 05:53, Ventricular pacing is now present Vent. rate has increased by 37 bpm Confirmed by Efren Charles ([id number]) on 12/30/2024 10:36:56 PM Referred By: REFERRED SELF Confirmed By: Efren Charles
--- NOTE | 2024-12-30 22:37 | Electrocardiogram Report ---
Test Reason : Blood Pressure : */* mmHG Vent. Rate : 88 BPM Atrial Rate : 88 BPM P-R Int : 132 ms QRS Dur : 156 ms QT Int : 408 ms P-R-T Axes : 61 197 31 degrees QTcB Int : 493 ms Atrial-sensed ventricular-paced rhythm Abnormal ECG When compared with ECG of 29-Dec-2024 12:54, Vent. rate has increased by 9 bpm Confirmed by Efren Charles ([id number]) on 12/30/2024 10:37:11 PM Referred By: REFERRED SELF Confirmed By: Efren Charles
--- NOTE | 2024-12-30 22:37 | Electrocardiogram Report ---
Test Reason : Blood Pressure : */* mmHG Vent. Rate : 81 BPM Atrial Rate : 81 BPM P-R Int : 136 ms QRS Dur : 108 ms QT Int : 384 ms P-R-T Axes : 65 -40 72 degrees QTcB Int : 446 ms Atrial-sensed ventricular-paced rhythm Abnormal ECG When compared with ECG of 29-Dec-2024 14:12, Vent. rate has decreased by 7 bpm Confirmed by Efren Charles ([id number]) on 12/30/2024 10:37:27 PM Referred By: REFERRED SELF Confirmed By: Efren Charles
--- NOTE | 2024-12-30 22:38 | Electrocardiogram Report ---
Test Reason : Blood Pressure : */* mmHG Vent. Rate : 73 BPM Atrial Rate : 73 BPM P-R Int : 144 ms QRS Dur : 108 ms QT Int : 410 ms P-R-T Axes : 49 -45 80 degrees QTcB Int : 451 ms Atrial-sensed ventricular-paced rhythm Abnormal ECG When compared with ECG of 29-Dec-2024 17:01, Vent. rate has decreased by 8 bpm Confirmed by Efren Charles ([id number]) on 12/30/2024 10:38:07 PM Referred By: REFERRED SELF Confirmed By: Efren Charles
[2024-12-31 03:34] VITALS: RESP 18
--- NOTE | 2024-12-31 12:14 | Electrocardiogram Report ---
Test Reason : Blood Pressure : */* mmHG Vent. Rate : 70 BPM Atrial Rate : 70 BPM P-R Int : 138 ms QRS Dur : 110 ms QT Int : 402 ms P-R-T Axes : -24 -33 73 degrees QTcB Int : 434 ms AV dual-paced rhythm Abnormal ECG When compared with ECG of 30-Dec-2024 04:58, Vent. rate has decreased by 3 bpm Confirmed by Femi Burrell ([id number]) on 12/31/2024 12:14:23 PM Referred By: REFERRED SELF Confirmed By: Femi Burrell
--- NOTE | 2024-12-31 12:47 | Hospitalist Progress Note ---
Date of Service December 31, 2024 Assessment & Plan (1) Lyme carditis: (2) Bradycardia: (3) HTN (hypertension): (4) Lyme disease: Plan 74yo female with HTN, HLP presenting with unwitnessed fall, unknown down time. noted has bradycardia with HR in the 40s, started on ceftriaxone. also concern for cognitive impairment. on 12/29/2024, planning for pacemaker by dr. Burrell. #Bradycardia/Lyme Carditis c/w ceftriaxone, suspect she's need senior care antibiotics f/u on TSH s/p pacemaker on 12/29/2024 EKG w/ concern for A-V dissociation. Started Rocephin 12/24, continue. Echocardiogram: EF >70%; borderline dilated RV; mild LA dilation; mild aortic regurgitation; mild pulm HTN; sinus rhythm w/ A-V dissociation, Rate in low 40s bpm deposition: acute rehab (per OT evaluation) family contact: Felicia Vivas ([phone]) Bradycardia has not yet improved (still in the 50s) Discussed with Dr. Charles, continue current treatment. s/p pacemaker on 12/29/2024 #Hypertension-s/p pacemaker, lisinorpil 40mg dialy #possible cognitive impairment, context of alcoholism -empirically replace thiamine with 500 mg IV q8h x 8 doses then change to oral -check B12 #Fall - unwitnessed fall. Patient has had gait instability in the past and has completed several sessions of PT/OT. She denies falling frequently of late. PT and OT eval Chest CT: mild pulm edema; mild thoracic aortic aneurysm severe stenosis of proximal left subclavian artery; mild esophageal dilatation that could be due to dysmotility vs reflux Head CT: no sign of intracranial hemorrhage inflammatory mastoiditis #Alcohol intoxication, alcohol use disorder Reports daily alcohol use w/ 3-4 beers daily Continue Thiamine & Folic acid supplements daily. #Hyperlipidemia- Crestor 40mg po daily #Onychogryphosis - referral to podiatry on discharge. Reviewed CBC - W7, Hg12, Plt 286 Reviewed BMP - normal. K 4.6, Cr 0.75, mag 2.0 DVT prophylaxis: SCD's Code: Full Admission and Anticipated Discharge Date Admission Date: December 23, 2024 Subjective OT recommended acute rehab she's need left UE ROM restriction for her pacemaker in addition, able to spoke with her sister; Felicia Vivas ([phone]) requesting for more home services Physical Exam Physical Exam: VITALS: Reviewed. WEIGHT/BMI reviewed. GEN: Healthy appearing, well-developed, NAD. -Head: NC/AT; -Mouth and throat: MMM. Normal gums, muc bettye, palate,. Good dentition. NECK: Supple, with no masses. CV: RRR, no m/r/g. + for pacemaker LUNGS: CTAB, no w/r/c. ABD: Soft, NT/ND, NBS, no masses or organomegaly. : N/A SKIN: Warm, well perfused. No skin rashes or abnormal lesions. MSK: No deformities, Normal gait. EXT: No clubbing, cyanosis, or edema. NEURO: hard of hearing Results & Data Results & Data Vital Signs (Past 12 Hours) Vital Signs Temp Pulse Resp BP Pulse Ox O2 Del Method 12/31/24 11:58 36.9 C 70 18 114/66 95 Room Air 12/31/24 07:43 36.3 C L 71 18 135/75 98 Room Air 12/31/24 03:33 36.9 C 68 18 124/71 99 Room Air Laboratory Results Laboratory Results - last 72 hr 12/29/24 06:29 Sodium 135 L Potassium 4.2 Chloride 100 Carbon Dioxide 25 Anion Gap 10 BUN 15 Creatinine 0.89 Est Cr Clr Drug Dosing 53.7 eGFR 68.84 BUN/Creatinine Ratio 16.9 Glucose 89 Calcium 9.2 Magnesium 1.9 TSH 4.250 Diagnostic Findings Chest X-Ray 12/30/24 07:00 EXAM: XR chest 2V PA/lateral CLINICAL HISTORY: EXACT TIME ORDERED Evaluate for pneumothorax and l TECHNIQUE: An X-ray image of the chest is obtained in AP projection. COMPARISON: 12/23/2024 16:51:00 TRANSACTIONAL PARALEGAL FINDINGS: Pulmonary Parenchyma: Lungs are clear bilaterally. No evidence of consolidation, collapse, or focal opacities. No pulmonary nodules are identified. No evidence of pleural effusion or pleural thickening. Heart and Mediastinum: Heart size and shape are normal. No mediastinal widening or masses. No hilar or mediastinal lymphadenopathy. Bony Thorax: Bony thorax appears intact without fractures or deformities. Soft Tissues: Soft tissues overlying the chest wall are unremarkable. IMPRESSION: Normal chest X-ray. No acute cardiopulmonary abnormalities are identified. No other new interval abnormality since prior study. Electronically signed by Matt Barreto 12-30-2024 07:30 AM PG Care Time/CCT Total # of Minutes Spent Total Time Spent with Patient: Total time spent is greater than 50% in coordination of care (as documented) at patient's floor/unit and/or counseling patient: Coding Level of Care Code 51684 SUB INP/OBS CARE 2/35MIN Diagnoses Lyme carditis A69.29 Bradycardia R00.1 HTN (hypertension) I10 Lyme disease A69.20 Time Spent (min) 35
[2024-12-31] MEDS: VITAMIN B COMPLEX TAB PO SCH (13:32)
[2024-12-31] MEDS: CYANOCOBALAMIN 1000 MCG/ML VIAL IM SCH (13:32)
--- NOTE | 2025-01-01 11:03 | Hospitalist Progress Note ---
Date of Service January 01, 2025 Assessment & Plan (1) Lyme carditis: (2) Bradycardia: (3) HTN (hypertension): (4) Lyme disease: Plan 74yo female with HTN, HLP presenting with unwitnessed fall, unknown down time. noted has bradycardia with HR in the 40s, started on ceftriaxone. also concern for cognitive impairment. on 12/29/2024, planning for pacemaker by dr. Burrell. #Bradycardia/Lyme Carditis c/w ceftriaxone, suspect she's need skilled nursing antibiotics s/p pacemaker on 12/29/2024 Echocardiogram: EF >70%; borderline dilated RV; mild LA dilation; mild aortic regurgitation; mild pulm HTN; deposition: seen by PT on 01/01/2025, home with home services and home PT needing walker family contact: Felicia Sangeetha ([phone]) heart doris, bradycardia s/p pacemaker s/p pacemaker on 12/29/2024 #Hypertension-s/p pacemaker (12/29), lisinopril 40mg dialy #possible cognitive impairment, context of alcoholism -empirically replace thiamine with 500 mg IV q8h x 8 doses then change to oral -check B12 #Fall - unwitnessed fall. Patient has had gait instability in the past and has completed several sessions of PT/OT. She denies falling frequently of late. PT noted she's use a walker at baseline, dc home with home PT, home services mild thoracic aortic aneurysm severe stenosis of proximal left subclavian artery; mild esophageal dilatation that could be due to dysmotility vs reflux inflammatory mastoiditis #Alcohol intoxication, alcohol use disorder Reports daily alcohol use w/ 3-4 beers daily Continue Thiamine & Folic acid supplements daily. #Hyperlipidemia- Crestor 40mg po daily #Onychogryphosis - referral to podiatry on discharge. DVT prophylaxis: SCD's Code: Full Admission and Anticipated Discharge Date Admission Date: December 23, 2024 Subjective she worked with PT today; ambulate well with walker recommended home with home PT she's getting IM b12. she s/p pacemaker and bradycardia resolved dizziness resolved. Physical Exam Physical Exam: VITALS: Reviewed. WEIGHT/BMI reviewed. GEN: Healthy appearing, well-developed, NAD. hard of hearing Neuro: AAox3 -Head: NC/AT; -Eyes: PERRL, EOMI. No discharge or redn ess; NECK: Supple, with no masses. CV: RRR, no m/r/g. + for pacemaker LUNGS: CTAB, no w/r/c. ABD: Soft, NT/ND, NBS, no masses or organomegaly. SKIN: Warm, well perfused. No skin rashes or abnormal lesions. MSK: No deformities, Normal gait. EXT: No clubbing, cyanosis, or edema. Results & Data Results & Data Vital Signs (Past 12 Hours) Vital Signs Temp Pulse Pulse Resp BP BP Pulse Ox 01/01/25 07:59 37.1 C 90 18 102/63 93 01/01/25 03:03 36.5 C 70 18 130/76 98 12/31/24 23:07 36.6 C 70 18 120/74 94 O2 Del Method 01/01/25 07:59 Room Air 01/01/25 03:03 Room Air 12/31/24 23:07 Room Air Medications Administered Current Inpatient Medications Acetaminophen (Acetaminophen 500 Mg Tab) 1,000 mg PO TID PRN PRN Reason: pain or fever Stop: 01/22/25 23:03 Last Admin: 01/01/25 02:42 Dose: 1,000 mg Atropine Sulfate (Atropine Sulfate 0.1 Mg/Ml 10ml Syr) 0.5 mg IV UD PRN PRN Reason: bradycardia Cyanocobalamin (Cyanocobalamin 1000 Mcg/Ml Vial) 1,000 mcg IM QAM [facility] Stop: 01/30/25 12:59 Last Admin: 01/01/25 09:05 Dose: 1,000 mcg Folic Acid (Folic Acid 1 Mg Tab) 1 mg PO QAM [facility] Stop: 01/25/25 08:59 Last Admin: 01/01/25 09:05 Dose: 1 mg Ceftriaxone Sodium (Rocephin) 2,000 mg in 50 mls @ 100 mls/hr IV Q24H [facility] Stop: 01/03/25 10:59 Last Infusion: 12/31/24 13:36 Dose: Infused Lisinopril (Lisinopril 40 Mg Tab) 40 mg PO DAILY [facility] Stop: 01/23/25 08:59 Last Admin: 01/01/25 09:05 Dose: 40 mg Lorazepam (Lorazepam 2 Mg/1 Ml Vial) 1 mg IV ONE PRN; Protocol PRN Reason: EtoH Withdrawal AWSS 6-10 Ondansetron HCl (Ondansetron Inj 2 Mg/Ml 2 Ml Vial) 4 mg IV Q6H PRN PRN Reason: Nausea And Vomiting Stop: 01/22/25 23:03 Oxycodone HCl (Oxycodone Hcl Ir 5 Mg Tab (Immediate Release)) 5 mg PO Q4H PRN PRN Reason: Pain Stop: 01/12/25 12:43 Last Admin: 12/30/24 08:55 Dose: 5 mg Rosuvastatin Calcium (Rosuvastatin Calcium 20 Mg Tab) 40 mg PO DAILY [facility] Stop: 01/23/25 08:59 Last Admin: 01/01/25 09:06 Dose: 40 mg Thiamine HCl (Thiamine Hcl 100 Mg Tab) 100 mg PO QAM [facility] Stop: 01/25/25 08:59 Last Admin: 12/27/24 08:19 Dose: 100 mg Vitamin B Complex (Vitamin B Complex Tab) 1 tab PO QAM [facility] Stop: 01/30/25 12:59 Last Admin: 01/01/25 09:06 Dose: 1 tab PG Care Time/CCT Total # of Minutes Spent Total Time Spent with Patient: Total time spent is greater than 50% in coordination of care (as documented) at patient's floor/unit and/or counseling patient: Coding Level of Care Code 88731 SUB INP/OBS CARE 06/25MIN Diagnoses Lyme carditis A69.29 Bradycardia R00.1 HTN (hypertension) I10 Lyme disease A69.20 Time Spent (min) 25
[2025-01-01 11:26] LABS: Anion Gap 6.0 (3-11); Blood Urea Nitrogen 21.0 mg/dl (6-23); Calcium 9.8 mg/dl (8.6-10.3); Carbon Dioxide 29.0 mmol/L (21-32); Chloride 100.0 mmol/L (98-107); Creatinine Clr Calc Pharmacy 44.2 ml/min; Glucose 109.0 mg/dl (70-99(Fasting)); Potassium 4.8 mmol/L (3.5-5.1); Sodium 135.0 mmol/L (136-145)
[2025-01-01 12:16] VITALS: BP 106/66; TEMP 97.5; O2SAT 96
[2025-01-01 16:39] VITALS: PULSE 70
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
== END 2025-01-01 16:39 | disposition home health service (06) | DRG 854 ==
LOC: ED 17:25 → 2S 20:58 → SUATTDRO 20:58 → 2S 22:39
DX: G31.84 Mild cognitive impairment of uncertain or unknown etiology; I70.8 Atherosclerosis of other arteries; I44.2 Atrioventricular block, complete; E53.8 Deficiency of other specified B group vitamins; M25.512 Pain in left shoulder; E78.5 Hyperlipidemia, unspecified; S01.511A Laceration without foreign body of lip, initial encounter; Y90.7 Blood alcohol level of 200-239 mg/100 ml; F10.129 Alcohol abuse with intoxication, unspecified; I10 Essential (primary) hypertension; Y93.01 Activity, walking, marching and hiking; A69.29 Other conditions associated with Lyme disease; I27.20 Pulmonary hypertension, unspecified; Z79.899 Other long term (current) drug therapy; Y92.480 Sidewalk as the place of occurrence of the external cause; L60.2 Onychogryphosis; H70.90 Unspecified mastoiditis, unspecified ear; W01.198A Fall on same level from slipping, tripping and stumbling with subsequent striking against other object, initial encounter; I71.20 Thoracic aortic aneurysm, without rupture, unspecified; F17.210 Nicotine dependence, cigarettes, uncomplicated